=== PATIENT | female | born 1975 | race Caucasian/White ===

== ENCOUNTER 2021-01-28 10:27 | Outpatient (REF) | payer OTHER, SELFPAY ==
[2021-01-30 13:27] LABS: H Pylori Breath Test Negative (Negative)
== END 2021-01-28 10:28 | disposition home or self-care (01) ==
LOC: HO.LNP 10:27
PROVIDERS: PCP Nurse Practitioner Family; Referring Provider Nurse Practitioner Family; Visit Provider Physician Assistant
DX: E66.01 Morbid (severe) obesity due to excess calories (principal); Z68.41 Body mass index [BMI] 40.0-44.9, adult; Z71.3 Dietary counseling and surveillance; Z87.891 Personal history of nicotine dependence
CPT/HCPCS: 83013; 99202; 99211

== ENCOUNTER → 2021-02-15 08:08 | Outpatient (BNVA) | payer OTHER, SELFPAY | PROVIDERS: PCP Nurse Practitioner Family; Visit Provider Surgery ==

== ENCOUNTER 2021-02-28 08:56 | Outpatient (REF) | payer OTHER, SELFPAY ==
--- NOTE | ~2021-02-28 | XR_ITS ---
EXAMINATION: XR CHEST CLINICAL INFORMATION: Obesity COMPARISON: None TECHNIQUE: 2 views of the chest were obtained. FINDINGS: No significant abnormality is noted involving the heart, lungs, mediastinum, bony thorax or soft tissues. XR/XR chest 2V IMPRESSION: Unremarkable examination.
--- NOTE | 2021-02-28 09:03 | ECG_ITS ---
Test Reason : E66.01 Blood Pressure : / mmHG Vent. Rate : 071 BPM Atrial Rate : 071 BPM P-R Int : 164 ms QRS Dur : 068 ms QT Int : 374 ms P-R-T Axes : 019 020 014 degrees QTc Int : 406 ms Normal sinus rhythm Low voltage QRS Borderline ECG No previous ECGs available Referred By: Elvi Alfaro Electronically Signed By:YSABEL MULLINS MD
[2021-02-28 09:20] LABS: MANUAL DIFF FLAG NO
[2021-02-28 10:04] LABS: Basophils Percent Auto 0.5 % (0-2); Eosinophils Absolute Auto 0.2 X10*3/uL (0.0-0.4); Eosinophils Percent Auto 3.4 % (0-4); Hematocrit 38.1 % (37.0-47.0); Hemoglobin 12.6 g/dl (12.0-16.0); Imm Gran Abs Auto 0.01 X10*3/uL (0.00-0.03); Imm Gran Pct Auto 0.2 % (0.0-0.4); Lymphocytes Absolute Auto 1.2 X10*3/uL (1.2-4.9); Lymphocytes Percent Auto 21.6 % (20-40); Mean Corpuscular HGB Conc 33.1 g/dl (31.0-35.0); Mean Corpuscular Hemoglobin 30.4 pg (27.0-33.0); Mean Corpuscular Volume 91.8 fL (80.0-98.0); Mean Platelet Volume 11.1 fL (9.4-12.3); Monocytes Absolute Auto 0.4 X10*3/uL (0.1-1.2); Neutrophils Absolute Auto 3.7 x10*3/uL (2.0-8.3); Neutrophils Percent Auto 67.3 % (45-73); Platelet Count 205 X10*3/uL (160-400); Red Blood Count 4.15 X10*6/uL (4.20-5.50); Red Cell Distribution Width 12.2 % (11.0-16.0); White Blood Count 5.6 X10*3/uL (4.8-10.8)
[2021-02-28 10:39] LABS: Estimated Average Glucose 88 mg/dL; Hemoglobin A1c % 4.7 %
[2021-02-28 10:43] LABS: Alanine Aminotransferase 13 U/L (0-31); Alkaline Phosphatase 45 U/L (39-117); Anion Gap 9 (12-20); Aspartate Amino Transferase 13 U/L (5-31); Bilirubin Total 0.4 mg/dL (0.0-1.0); Blood Urea Nitrogen 20 mg/dL (9-16); C Reactive Protein 0.41 mg/dL (< or = 0.50); Calcium 9.3 mg/dL (8.4-10.2); Carbon Dioxide 28 mmol/L (22-29); Chloride 109 mmol/L (96-108); Cholesterol 213 mg/dL; Estimated Glomerular Filt Rate > 60; Glucose Random 86 mg/dL (60-115); HDL Cholesterol 63 mg/dL; Iron 54 mcg/dL (30-160); LDL Cholesterol Calculated 138 mg/dl; Percent Iron Saturation 19 % (15-50); Potassium 4.3 mmol/L (3.3-5.1); Sodium 142 mmol/L (135-145); Total Iron Binding Capacity 287 mcg/dL (228-428); Total Protein 6.7 g/dL (6.5-8.0); Triglycerides 64 mg/dL; Unsaturated Iron Binding 233 ug/dL
[2021-02-28 10:55] LABS: Ferritin 186 ng/mL (10-250); Insulin 8 uU/mL (2-29); TSH reflex Free T4 1.59 uIU/mL (0.32-4.0); Vitamin D 25-OH Total 19.3 ng/mL (>30)
[2021-02-28 11:06] LABS: Vitamin B12 395 pg/mL (200-900)
[2021-03-01 12:01] LABS: PTHI 60 pg/mL (14-64)
[2021-03-03 06:27] LABS: Zinc 74 mcg/dL (60-130)
[2021-03-03 20:55] LABS: Vitamin A 66 mcg/dL (38-98)
[2021-03-05 09:16] LABS: Vitamin B1 11 nmol/L (8-30)
== END 2021-02-28 08:57 | disposition home or self-care (01) ==
LOC: HO.LAB 08:56
PROVIDERS: Physician Assistant; PCP Surgery; Visit Provider Surgery
DX: E66.01 Morbid (severe) obesity due to excess calories (principal)
CPT/HCPCS: 36415; 71046; 80053; 80061; 82306; 82607; 82728; 82746; 83036; 83525; 83540; 83970; 84425; 84443; 84590; 84630; 85025; 86140; 93005

== ENCOUNTER → 2021-03-01 08:03 | Outpatient (BNVA) | payer OTHER, SELFPAY | PROVIDERS: PCP Nurse Practitioner Family; Visit Provider Dietitian, Registered | DX: E66.01 Morbid (severe) obesity due to excess calories (principal) | CPT/HCPCS: 97802 ==

== ENCOUNTER 2021-03-16 09:16 | Outpatient (REF) | payer OTHER, SELFPAY ==
--- NOTE | ~2021-03-16 | FL_ITS ---
EXAMINATION: XR FLUOROSCOPY UPPER GI WITH AIR CLINICAL INFORMATION: Obesity. COMPARISON: None TECHNIQUE: Upper GI was performed using thin and thick barium and effervescent granules. FINDINGS: Esophageal motility is normal. There is significant gastroesophageal reflux. No hernia is seen. The stomach and duodenum are normal-appearing. No fold thickening, mass, ulcer, or stricture is seen. FLUOROSCOPY TIME: 0.6 minutes. DOSE AREA PRODUCT: 5 Gy-cm2. 17 saved fluoroscopic images. FL/FL upper GI w air IMPRESSION: Significant gastroesophageal reflux. Otherwise unremarkable exam.
--- NOTE | ~2021-03-16 | US_ITS ---
EXAMINATION: US COMPLETE ABDOMEN WITH LIVER ELASTOGRAPHY CLINICAL INFORMATION: Obesity. COMPARISON: None. TECHNIQUE: Real-time imaging of the abdominal viscera. Noninvasive ultrasound liver fibrosis assessment is performed using Kendall ElastPQ point quantification shear wave elastography (2D-SWE) with a C5-2 MHz transducer. Multiple elastography samples are obtained. FINDINGS: PANCREAS: The visualized pancreatic head and body are normal in appearance. The remainder of the pancreas is obscured from visualization by the overlying bowel gas. ABDOMINAL AORTA: The proximal, middle, and distal aortic segments are normal in caliber. INFERIOR VENA CAVA: Visualized portions are normal. LIVER: The liver demonstrates normal size, contour and echogenicity. There is a small echogenic lesion right hepatic lobe, likely hemangioma measuring 0.7 x 0.7 x 0.7 cm. No additional lesions seen. There is no intrahepatic ductal dilatation. The right lobe measures 15.4 cm in length. The left lobe measures 9.6 cm in length. Portal flow is hepatopetal. Shear wave liver elastography median stiffness is 1.55 m/s (reference: normal median stiffness is 1.3 m/s or less). IQR/median stiffness to assess sampling precision is 0.15 (reference: good quality data set is IQR/median stiffness of 0.15 or less). GALLBLADDER: There is a small nonmobile echogenic polyp measuring 0.3 x 0.3 x 0.3 cm. The gallbladder is physiologically distended without evidence of stones, sludge, polyps, wall thickening or pericholecystic fluid. COMMON BILE DUCT: Normal in caliber measuring 0.4 cm in diameter. RIGHT KIDNEY: Normal. No hydronephrosis. No renal calculi or focal parenchymal lesions. The kidney measures 10.3 cm in maximum dimension. LEFT KIDNEY: Normal. No hydronephrosis. No renal calculi or focal parenchymal lesions. The kidney measures 9.6 cm in maximum dimension. SPLEEN: Normal. The spleen measures 14.0 cm in maximum dimension. FREE FLUID: None. US/US abdomen comp w elastography IMPRESSION: 1. Right hepatic lobe hemangioma. 2. Small gallbladder polyp but no echogenic stones or wall thickening. 3. Liver elastography: Median liver stiffness measured 1.55 m/s suggestive of cACLD ruled out. REFERENCE: Society of Radiologists in Ultrasound Liver Stiffness Thresholds (2020): LIVER STIFFNESS THRESHOLDS: *Liver Stiffness equal or less than 1.3 m/s: High probability of being normal. *Liver Stiffness less than 1.7 m/s: In the absence of other known clinical signs, rules out compensated advanced chronic liver disease. *Liver Stiffness 1.7-2.1 m/s: Suggestive of compensated advanced chronic liver disease but need further test for confirmation. *Liver Stiffness over 2.1 m/s: Rules in compensated advanced chronic liver disease. *Liver Stiffness over 2.4 m/s: Suggestive of clinically significant portal hypertension. QUALITY OF DATA SET: *IQR/Median value equal or less than 0.15 implies a quality data set. *IQR/Median value over 0.15 implies a poor quality data set. SIGNIFICANT CHANGE FROM PRIOR EXAM: Significant change if liver stiffness measurement is 10% or greater from prior exam. OTHER CONSIDERATIONS: The stage of liver fibrosis may be overestimated in the setting of acute hepatitis, liver inflammation, elevated liver function tests, hepatic vascular congestion, obstructive cholestasis, non-fasting state, and infiltrative diseases such as amyloidosis and lymphoma. In some patients with NAFLD, the liver stiffness thresholds for compensated advanced chronic liver disease may be lower. In causes other than viral hepatitis and NAFLD, liver stiffness thresholds are not well established.
== END 2021-03-16 09:17 | disposition home or self-care (01) ==
LOC: HO.US 09:16
PROVIDERS: Visit Provider Surgery
DX: E66.01 Morbid (severe) obesity due to excess calories (principal); K21.9 Gastro-esophageal reflux disease without esophagitis
CPT/HCPCS: 74246; 76705; 76981

== ENCOUNTER → 2021-03-17 08:07 | Outpatient (BNVA) | payer OTHER, SELFPAY | PROVIDERS: PCP Nurse Practitioner Family; Referring Provider Physician Assistant; Visit Provider Dietitian, Registered | DX: E66.01 Morbid (severe) obesity due to excess calories (principal) | CPT/HCPCS: 97803 ==

== ENCOUNTER → 2021-03-21 07:59 | Outpatient (BNVA) | payer OTHER, SELFPAY | PROVIDERS: PCP Nurse Practitioner Family; Visit Provider Surgery ==

== ENCOUNTER → 2021-04-07 10:45 | Outpatient (BNVA) | payer OTHER, SELFPAY | PROVIDERS: PCP Nurse Practitioner Family; Visit Provider Counselor Mental Health | DX: F34.1 Dysthymic disorder (principal) | CPT/HCPCS: 90791 ==

== ENCOUNTER → 2021-04-15 08:36 | Outpatient (BNVA) | payer OTHER, SELFPAY | PROVIDERS: PCP Nurse Practitioner Family; Visit Provider Surgery ==

== ENCOUNTER → 2021-05-16 08:15 | Outpatient (BNVA) | payer OTHER, SELFPAY | PROVIDERS: PCP Nurse Practitioner Family; Visit Provider Surgery | DX: Z13.89 Encounter for screening for other disorder (principal) ==

== ENCOUNTER → 2021-06-03 12:48 | Outpatient (BNVA) | payer OTHER, SELFPAY | PROVIDERS: PCP Nurse Practitioner Family; Referring Provider Nurse Practitioner Family; Visit Provider Surgery | DX: Z13.89 Encounter for screening for other disorder (principal) ==

== ENCOUNTER → 2021-06-06 07:54 | Outpatient (BNVA) | payer OTHER, SELFPAY | PROVIDERS: PCP Nurse Practitioner Family; Visit Provider Surgery | DX: E66.01 Morbid (severe) obesity due to excess calories (principal); K21.9 Gastro-esophageal reflux disease without esophagitis; R11.0 Nausea; Z01.818 Encounter for other preprocedural examination ==

== ENCOUNTER 2021-06-21 06:07 | Inpatient (IN) | payer OTHER, SELFPAY ==
[2021-06-07 10:35] VITALS: BMI 37.0
[2021-06-09 09:25] LABS: MANUAL DIFF FLAG NO
[2021-06-09 10:17] LABS: Basophils Percent Auto 0.6 % (0-2); Eosinophils Absolute Auto 0.1 X10*3/uL (0.0-0.4); Eosinophils Percent Auto 1.3 % (0-4); Hemoglobin 13.2 g/dl (12.0-16.0); Imm Gran Abs Auto 0.02 X10*3/uL (0.00-0.03); Imm Gran Pct Auto 0.4 % (0.0-0.4); Lymphocytes Percent Auto 21.1 % (20-40); Mean Corpuscular Hemoglobin 30.3 pg (27.0-33.0); Mean Corpuscular Volume 91.7 fL (80.0-98.0); Mean Platelet Volume 12.6 fL (9.4-12.3); Monocytes Absolute Auto 0.3 X10*3/uL (0.1-1.2); Monocytes Percent Auto 6.7 % (2-11); Neutrophils Absolute Auto 3.3 x10*3/uL (2.0-8.3); Neutrophils Percent Auto 69.9 % (45-73); Platelet Count 181 X10*3/uL (160-400); Red Blood Count 4.36 X10*6/uL (4.20-5.50); Red Cell Distribution Width 12.4 % (11.0-16.0); White Blood Count 4.7 X10*3/uL (4.8-10.8)
[2021-06-09 10:22] LABS: Prothrombin Time 11.6 SEC (9.9-13.0)
[2021-06-09 10:25] LABS: Partial Thromboplastin Time 32.2 SEC (24.1-38.0)
[2021-06-09 10:28] LABS: Estimated Average Glucose 85 mg/dL; Hemoglobin A1c % 4.6 %
[2021-06-09 10:49] LABS: Alanine Aminotransferase 104 U/L (0-31); Albumin Level 4.1 g/dL (3.5-5.0); Alkaline Phosphatase 42 U/L (39-117); Anion Gap 12 (12-20); Aspartate Amino Transferase 58 U/L (5-31); Bilirubin Total 0.6 mg/dL (0.0-1.0); Blood Urea Nitrogen 21 mg/dL (9-16); C Reactive Protein 0.38 mg/dL (< or = 0.50); Calcium 9.7 mg/dL (8.4-10.2); Carbon Dioxide 24 mmol/L (22-29); Chloride 109 mmol/L (96-108); Cholesterol 162 mg/dL; Creatinine Clr Calc Pharmacy 73.5; Estimated Glomerular Filt Rate > 60; Glucose Random 100 mg/dL (60-115); HDL Cholesterol 51 mg/dL; LDL Cholesterol Calculated 103 mg/dl; Potassium 4.9 mmol/L (3.3-5.1); Sodium 140 mmol/L (135-145); Total Protein 6.6 g/dL (6.5-8.0); Triglycerides 43 mg/dL
[2021-06-09 11:18] LABS: Insulin 8 uU/mL (2-29); TSH reflex Free T4 0.81 uIU/mL (0.32-4.0)
--- NOTE | 2021-06-17 23:42 | MHC.SHP ---
Pre-Procedural Eval Section A Date of Service: 06/17/21 The patient is an INPATIENT: Yes The History & Physical has been completed within 30 days and I have reviewed it.: Yes Section B Chief Complaint: obesity Relevant Family History (Specify if Yes): No Relevant Social History: None Present Medications: None Medical History: No relevant PMH History of Previous Operations: No relevant previous surgery Allergies: Allergies Allergy/AdvReac Type Severity Reaction Status Date / Time erythromycin base Allergy Severe Hives, rash Verified 06/07/21 10:11 Penicillins Allergy Severe Hives, rash Verified 06/07/21 10:14 Sulfa (Sulfonamide Allergy Severe Hives, rash Verified 06/07/21 10:14 Antibiotics) Review of Systems Sugical H&P ROS: Negative: Constitution, Cardiovascular, Respiratory, Neurological, Psychiatric, Hem-Onc, Allergic/Immunologic, Gastrointestinal, Genitourinary, Musculoskeletal, Integumentary, Endocrine and Eyes/Ears/Nose/Throat Exam Surgical H&P Exam: Normal: HEENT, Normal: Heart, Normal: Lungs, Normal: Extremities, Normal: Abdomen, Normal: Skin and Normal: Neurological Plan Diagnosis/Plan: Unchanged I have reviewed the history and physical and performed a pertinent physical examination on my patient. No changes have occurred unless specified.
[2021-06-20 13:25] LABS: COVID-19 Test Negative (Negative); IDNOW Serial# 55D5AD1C
[2021-06-21] VITALS (16 sets, daily range): BP systolic 110–141; BP diastolic 53–80; PULSE 65–94; RESP 16–18; TEMP 36.4–37.3; O2SAT 93–100
[2021-06-21 06:23] LABS: UPreg QC Valid YES; Urine Pregnancy NEGATIVE (NEGATIVE)
--- NOTE | 2021-06-21 07:04 | P.CONAN_ITS ---
HPI - Anesthesia Eval Consult details Narrative: 45 F for Gastric sleeve PMFSH Active Problems Active Problems: All Active Problems (Updated 06/05/21 @ 15:35 by Main Soto MD) BMI 39.0-39.9,adult (Acute) Obesity (Acute) Dysthymic disorder (Acute) Vitamin B12 deficiency (Acute) Vitamin D deficiency (Acute) Morbid obesity (Acute) Past Medical History Medical History (Updated 06/21/21 @ 10:50 by Main Soto MD) GERD (gastroesophageal reflux disease) Liver fibrosis Functional capacity: independent ambulation Family History Family History (Updated 01/28/21 @ 10:45 by Cyrus Davidson [facility]) Mother Hypertension Father Cancer of pancreas Hypertension Sister No problems noted. Sister No problems noted. Son No problems noted. Daughter No problems noted. 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 If so, by whom?: No Are you DNR?: No Advance Directives: No (will bring copy DOS) Advance Directives on File: No Recently lost weight without trying: No Patient : No FDLMP: 05/20/2021 : No Poor oral hygiene: No Meds Allergies Allergy/AdvReac Type Severity Reaction Status Date / Time erythromycin base Allergy Severe Hives, rash Verified 06/07/21 10:11 Penicillins Allergy Severe Hives, rash Verified 06/07/21 10:14 Sulfa (Sulfonamide Allergy Severe Hives, rash Verified 06/07/21 10:14 Antibiotics) Active Medications: Current Medications Lactated Ringer's (Lr) 1,000 mls @ 999 mls/hr IV .Q1H1M MATT Stop: 06/21/21 08:15 Acetaminophen (Ofirmev) 1,000 mg in 100 mls @ 400 mls/hr IV PREOP ONE Stop: 06/21/21 07:44 Exam Exam Date and Time: June 21, 2021 0704 Height,Weight and Vital Signs: Height 5 ft 1 in Weight 88.904 kg Last Vital Signs Temp 98.4 F 06/21/21 06:36 Pulse 65 06/21/21 06:36 Resp 16 06/21/21 06:36 BP 116/68 06/21/21 06:36 Pulse Ox 97 06/21/21 06:36 Pertinent Lab Results Pertinent Lab Results: Laboratory Tests 06/09/21 06/09/21 06/09/21 09:18 09:24 09:24 WBC 4.7 L RBC 4.36 Hgb 13.2 Hct 40.0 MCV 91.7 MCH 30.3 MCHC 33.0 RDW 12.4 Plt Count 181 MPV 12.6 H Immature Gran % (Auto) 0.4 Neut % (Auto) 69.9 Lymph % (Auto) 21.1 [place] % (Auto) 6.7 Eos % (Auto) 1.3 Baso % (Auto) 0.6 Lymph # (Auto) 1.0 L [place] # (Auto) 0.3 Eos # (Auto) 0.1 Baso # (Auto) 0.0 Abs Immat Gran (auto) 0.02 Absolute Neuts (auto) 3.3 Absolute Nucleated RBC 0.000 Nucleated RBC % (auto) 0.0 PT 11.6 INR 1.0 APTT 32.2 Sodium Potassium Chloride Carbon Dioxide Anion Gap BUN Creatinine Estim Creat Clear Calc Estimated GFR Random Glucose Estimat Average Glucose Hemoglobin A1c % Insulin Level Calcium Total Bilirubin AST ALT Alkaline Phosphatase C-Reactive Protein Total Protein Albumin Triglycerides Cholesterol LDL Cholesterol, Calc HDL Cholesterol TSH Urine Test COVID-19 (JAMIE) COVID-19 Clin Com Blood Type O Positive Antibody Screen NEGATIVE 06/09/21 06/09/21 06/20/21 09:24 09:24 12:59 WBC RBC Hgb Hct MCV MCH MCHC RDW Plt Count MPV Immature Gran % (Auto) Neut % (Auto) Lymph % (Auto) [place] % (Auto) Eos % (Auto) Baso % (Auto) Lymph # (Auto) [place] # (Auto) Eos # (Auto) Baso # (Auto) Abs Immat Gran (auto) Absolute Neuts (auto) Absolute Nucleated RBC Nucleated RBC % (auto) PT INR APTT Sodium 140 Potassium 4.9 Chloride 109 H Carbon Dioxide 24 Anion Gap 12 BUN 21 H Creatinine 0.99 Estim Creat Clear Calc 73.5 Estimated GFR > 60 Random Glucose 100 Estimat Average Glucose 85 Hemoglobin A1c % 4.6 Insulin Level 8 Calcium 9.7 Total Bilirubin 0.6 AST 58 H ALT 104 H Alkaline Phosphatase 42 C-Reactive Protein 0.38 Total Protein 6.6 Albumin 4.1 Triglycerides 43 Cholesterol 162 D LDL Cholesterol, Calc 103 HDL Cholesterol 51 TSH 0.81 Urine Test COVID-19 (JAMIE) Negative COVID-[facility] See Note Blood Type Antibody Screen 06/21/21 06:13 WBC RBC Hgb Hct MCV MCH MCHC RDW Plt Count MPV Immature Gran % (Auto) Neut % (Auto) Lymph % (Auto) [place] % (Auto) Eos % (Auto) Baso % (Auto) Lymph # (Auto) [place] # (Auto) Eos # (Auto) Baso # (Auto) Abs Immat Gran (auto) Absolute Neuts (auto) Absolute Nucleated RBC Nucleated RBC % (auto) PT INR APTT Sodium Potassium Chloride Carbon Dioxide Anion Gap BUN Creatinine Estim Creat Clear Calc Estimated GFR Random Glucose Estimat Average Glucose Hemoglobin A1c % Insulin Level Calcium Total Bilirubin AST ALT Alkaline Phosphatase C-Reactive Protein Total Protein Albumin Triglycerides Cholesterol LDL Cholesterol, Calc HDL Cholesterol TSH Urine Test NEGATIVE COVID-19 (JAMIE) COVID-[facility] Com Blood Type Antibody Screen Airway Mallampati Class: II TM Dist: >3cm Neck ROM: Full Loose/Missing/Broken Teeth: Yes Heart: S1, S2 Lungs: b/l breath sounds Assessment and Plan Assessment Anesthesia Assessment: Anesthesia Plan Discussed and Chart Reviewed Final Anesthetic Review Family History of Problems with Anesthesia: No History of Problems with Anesthesia: No NPO: Yes ASA Class: III Final Preanesthetic Review: Meds/Allgs Chart Reviewed, Consent Obtained/Reviewed and Anes Risks/Benef Reviewed Patient Risk: Intermediate Procedure Risk: Intermediate Anesthetic Plan Anesthetic Plan: GA Disposition: Inp. Admit - Standard Bed
[2021-06-21] MEDS: Lactated Ringers 1,000 ML 999 ML IV (07:08)
--- NOTE | 2021-06-21 10:38 | P.DS_ITS ---
DS: Providers Provider Date of Service: 06/22/21 Date of admission: 06/21/21 06:07 Primary care physician: Unknown Physician DS: Summary Hospital Course Hospital Course: ADMITTING DIAGNOSIS: morbid obesity DISCHARGE DIAGNOSIS: same, s/p laparoscopic sleeve gastrectomy PAST SURGICAL HISTORY: appendectomy and section PROCEDURE: upper endoscopy, laparoscopic sleeve gastrectomy DISCHARGE SUMMARY: History of Present Illness: The patient is a 45 +year-old woman with a BMI of 43.4 kg/m2 and associated co- morbidities as described above. The patient had extensive work-up,lost 25 lbs preoperatively and was electively scheduled for laparoscopic, possible open sleeve gastrectomy and gastropexy. Risks and complications of the surgery were discussed with the patient in advance, particularly the possibility of , pulmonary embolism, anastomotic leak, bleeding, bowel injury, GERD, cardiac, renal or pulmonary complications. The patient understood all the risks and was in agreement with the surgical plan. Hospital Course: The patient underwent an uneventful laparoscopic sleeve gastrectomy with gastropexy on the day of admission. Postoperatively, the patient was transferred to the surgical floor. The patient received IV Acetaminophen and IV dilaudid for pain control. Patient was started on bariatric phase 1 diet POD #0. On postoperative day one, the patient was feeling well without nausea, vomiting, fevers, or tachycardia. The patient had some mild incisional pain and the abdomen was soft. On the morning of postoperative day one, the patient was continued on 1 ounce of water or ice every half hour. During the day, the patient did fairly well, having some incisional pain, but able to ambulate adequately and to tolerate liquids well. Since the patient is doing well, we decided that the patient was ready to be discharged. The patient was given instructions to follow-up with me next week and to call my office for any fever over 101, persistent abdominal pain, nausea, vomiting, GERD, symptoms of DVT such as calf tenderness, or leg swelling, or pulmonary embolism such as chest pain or shortness of breath. The patient was also instructed to drink 40-60 ounces of liquids per day using the 1-ounce cups. The patient had been given prescriptions for Tylenol for pain, Zofran prn for nausea, and pantoprazole and carafate previously. The patient was encouraged to ambulate and use the incentive spirometer. The patient was allowed to shower, but no baths, and encouraged to stay active at home. All of these instructions were given to the patient personally. All questions were answered and the patient understood all instructions, the instructions were also given to the patient in print. Time Spent with Patient Time attestation: Total time spent providing and/or coordinating discharge services: Discharge coordination time: Less than 30 minutes Quality: Safe Use of Opioids Does Pt have an Active Cancer Diagnosis on the Problem List?: No Quality: Stroke Does the patient have a stroke diagnosis?: No Physical Exam Vital Signs: Vital Signs: Last Vital Signs Temp 98.4 F 06/21/21 06:36 Pulse 65 06/21/21 06:36 Resp 16 06/21/21 06:36 BP 116/68 06/21/21 06:36 Pulse Ox 97 06/21/21 06:36 BMI result Body Mass Index 37.0 DS: Data Data Completed and Pending Pending studies at discharge: Pending at discharge 06/21/21 09:36 Surgical [PTH] Routine Labs on day of discharge: Laboratory Results - last 24 hr 06/20/21 06/21/21 12:59 06:13 Urine Test NEGATIVE COVID-19 (JAMIE) Negative COVID-19 Clin Com See Note Discharge Plan Discharge Anticipated Discharge Date/Time: 06/22/21 10:36 Patient Disposition: Home, Self-Care Discharge Diagnosis: s/p sleeve gastrectomy Referrals: Physician,Unknown J [Primary Care Provider] - 1 Week Discharge Medications: Continued pantoprazole 40 mg tablet,delayed release (DR/EC) 40 mg PO DAILY Qty: 30 2RF ondansetron HCl 4 mg tablet 4 mg PO Q12H Qty: 20 0RF Discontinued cholecalciferol (vitamin D3) 125 mcg (5,000 unit) capsule 125 mcg PO DAILY Qty: 30 2RF mecobalamin (vitamin B12) 1,000 mcg tablet,disintegrating 1,000 mcg sublingual DAILY Qty: 30 2RF Rx Instructions: place tablet under tongue and allow to dissolve for at least30 secs before swallowing Discharge Orders: Discharge Order (Routine); Ordered 06/22/21 Ordered By: Main Soto Diet: other Activity on Discharge: No heavy lifting Stand Alone Forms: Patient Portal Discharge page Care Plan Goals: weight loss Health Concerns: morbid obesity Plan of Treatment: No tub baths, sex or returning to work until discussed at first post op appointment. No exercise, alcohol, tobacco or illegal drug use. Continue to use incentive spirometer hourly while awake. Walk in home for 5- 10 minutes every 2 hours during the first week. Continue phase 1 diet today and start phase 2 diet tomorrow morning. Follow all instructions in the bariatric handbook and call with any questions. 1. Please call your doctor or come back to the emergency room should any new symptoms arise. 2. You will receive a courtesy call from [facility] 24-48 hours after discharge. 3. Activity: abstain from alcohol, practice limited stair climbing, no bending, no driving, no exercise, no illicit substances, no lifting, no sex, no tub bath, no work. 4. Diet: continue as discussed with Dr. Soto. 5. Dressing Change/Wound Care: Do not change or remove surgical dressings unless they are wet or soiled. 6. Call your doctor if: - Your temperature exceeds 101.5 F - You experience excessive pain or swelling - You have an unexpected reaction to medication - You have excessive bleeding - You experience continued vomiting/nausea - Your incision begins to separate - Your incision shows signs of infection such as increased redness, swelling, excessive pain, heat, or drainage (light blood or clear fluid is normal) 7. General instructions: No lifting greater than 5 lbs for the next 4 weeks[address] driving within 24 hours of taking narcotic pain medications. If you do not move your bowels in the next 2 days, please take milk of magnesia over the counter. Please follow the post op diet and do not advance your diet until you are seen in the office in about 2 weeks. Please walk around your home every hour or two to prevent blood clots from forming in your legs. You do not need to wake from sleeping to walk. Please sleep in a bed or couch to prevent kinking at the hips and knees. Please take your incentive spirometer (your lung gas leak inspector) home with you and use it for the next few days to prevent pneumonias. You may shower, no hot tubs, baths or swimming pools. Please call the office with any questions or concerns such as increasing abdominal pain, fever, chills, shortness of breath, chest pain, leg pain or swelling, or redness or drainage from your incisions. Do not hesitate to contact the office with any questions at . The patient's medical history has been reviewed and they are considered low risk for post op DVT and therefore DVT prophylaxis is not considered necessary. Travel after surgery was reviewed. The patient has not disclosed any travel plans during the first 30 days after surgery and they have been advised that within the first 30 days after surgery any bus, plane, train or car travel over 2 hours in duration is contraindicated due to the possibility of developing blood clots from immobility. Any travel, needs to include periods of ambulation of 10 minutes in duration every 2 hours. The patient was instructed to discuss any plans for travel during this period with their bariatric surgeon. Assessment: stable, post op sleeve gastrectomy Discharge Date/Time: 06/22/21 09:06
--- NOTE | 2021-06-21 10:45 | P.BOP_ITS ---
Brief Operative Note Date of Service: 06/21/21 Pre-op diagnosis: Severe obesity and comorbidities (see below) Post-op diagnosis: same Procedure: INITIAL PATIENT BMI ON PRESENTATION AT OUR OFFICE: 43.4 kg/m2 LAST BMI BEFORE SURGERY: 38.7 kg/m2 COMORBIDITIES: GERD, liver fibrosis ?The patient presented to the Weight Management Program with significant obesity that was negatively impacting the patient's comorbidities as listed above.? The program is a phased program with a special focus on preoperative medical weight management to promote substantial weight loss and prepare the patients for the second phase of the program: bariatric surgery. The patient participated in an intensive weekly lifestyle ?intervention and exercise program during which the patient ?has lost between the initial office visit and the last preoperative visit 25.8lbs, or 11.59% of initial actual body weight. It was deemed appropriate for the patient to now have bariatric surgery. In light of the current Covid-19 pandemic and the well documented strong association of obesity and increased risk of worse outcomes if infected with Covid-19 (REFERENCES: https://pubmed.ncbi.nlm.nih.gov/94069152/ ,? https://pubmed.ncbi.nlm.nih. gov/39777475/ ), any delay in undergoing bariatric surgery may lead to the patient's worsening health condition and increased?risk of more severe Covid-19 disease if infected. In addition a recent?study from [facility] published in [facility] on 02/21/2021 ([email or web address]/C:/[id number] [email or web address]) found that, among patients with obesity, substantial weight loss achieved with surgery was associated with improved outcomes of COVID-19 infection. The findings suggest that obesity can be a modifiable risk factor for the severity of COVID-19 infection. In addition, the patient met the BMI-criteria for bariatric surgery based on the BMI on initial presentation. The patient should not be penalized for achieving such weight loss because ?it is not sustainable long-term without surgical intervention and it was achieved in preparation for bariatric surgery ?under my direction and based on my published research (file:///C:/Use rs/[email or web address]/[email or web address](3).pdf and? https://www.soard.org/article/C5862-8175(40)87359-X/pdf ) ?that a 10% preoperative weight loss improves long-term weight loss after surgery and reduces perioperative complications.? Insurance carriers such as [employer] have endorsed my recommendations ?and have included in their policies criteria to include a 10% preoperative weight loss requirement. PROCEDURE: Esophago-gastroscopy, laparoscopic repair of incarcerated diaphragmatic hernia, laparoscopic lysis of adhesions, laparoscopic sleeve gastrectomy and laparoscopic gastropexy INDICATIONS: This is a 45 year-old female who was electively scheduled for laparoscopic, possibly open sleeve gastrectomy. The risks and complications of the procedure were discussed with the patient in advance, particularly the possibility of ; pulmonary embolism; staple line leak; bleeding; GERD; cardiac, pulmonary, or renal complications; as well as long-term problems such as insufficient weight loss, vitamin deficiency, strictures, or ulcers. The patient understood all the risks, and was in agreement to proceed with surgery. DESCRIPTION OF PROCEDURE: After informed consent was obtained from the patient, the patient was given preoperative antibiotics, and was transferred to the operating room. After successful induction of general anesthesia, pneumatic compression devices were placed on both lower extremities. An upper endoscopy was performed next. The oropharynx and esophagus appeared to be within normal limits. There was no diaphragmatic hernia present consistent with the findings of the preoperative upper GI. The stomach was entered. Then after all fluid and air were suctioned and the stomach was fully decompressed, the scope was withdrawn and secured in the mid esophagus. The patient was then prepped and draped in the usual sterile manner, and abdominal access was established at the right upper quadrant with the Skye technique. A 12 mm blunt port was inserted, and the abdomen was insufflated with CO2 to a pressure of 15 mmHg. Under direct visualization, additional ports were placed, specifically two 5 mm Versi-step ports to the left upper quadrant, and a 5 mm Versi-Step port to the right upper quadrant. 1% lidocaine plain was used to infiltrate all port sites as well as all fascia defects. Using the EndoClose suture passer device, I placed a #1 Polysorb tie across the falciform ligament in order to retract it up against the abdominal wall and prevent injury of the ligament with our instruments during the procedure. Following that, the patient was placed in a steep reverse Trendelenburg position. An additional 5 mm port was placed to the right flank for the Mediflex retractor that was used to retract the left lobe of the liver. The gastro-esophageal fat pad was opened with the ultrasonic device (Thunderbeat, Olympus) and the anterior esophagus and hiatus were exposed. The angle of His was opened with the ultrasonic device the fundus of the stomach from any diaphragmatic and splenic attachments. I then opened the gastrocolic ligament between the transverse colon and the greater curvature of the stomach with the ultrasonic device to enter the lesser sac and facilitate the ligation of the short gastric vessels. I started at a mid-point along the greater curvature and using the Thunderbeat, all short gastric vessels were divided all the way to the angle of His until the left sabino was completely dissected at its entirety. I then divided the gastro-colic ligament distally to a distance of about 3-4 cm proximal to the pylorus. The stomach was then divided transversely with one Endo CLAUDIA-45 purple and four CLAUDIA-60 articulating orange loads using the AEON stapler and loads. Every effort was made that the gastric sleeve had a tubular shape and an even caliber throughout. Once the sleeve resection was completed, the staple line of the gastric sleeve was reinforced with Hemoclips. The resected stomach was retrieved without difficulty from the Skye port. A gastropexy was then performed in order to prevent postoperative GERD and partial gastric volvulus. Several interrupted 2.0 Surgidac sutures were placed between the sleeve's staple line and the previously divided greater omentum and gastro-colic ligament using the Endo-Stitch device. ?An upper endoscopy was performed. There was no narrowing at the GE junction. The scope was easily advanced all the way to the pylorus which was clearly visualized. There was no narrowing anywhere and the sleeve's caliber was even throughout. The sleeve's staple line was inspected and there was no evidence of ischemia, bleeding or dehiscence. At that point the gastroscope was withdrawn from the patient?s mouth while we were decompressing the bowel and the stomach f rom any remaining air. I looked into the lesser sac to see how the sleeve was situating and it was situating well. There was no bleeding from the staple line, spleen, or short gastric vessels. The Mediflex retractor was removed, and the undersurface of the liver was inspected and there was no bleeding. The patient was placed in supine position. I closed the fascial defect of the 12 mm port site with a figure of eight #1 Polysorb suture. Then 100 cc 0.25 % Marcaine plain with 10 mg of Dexamethasone were used to infiltrate the fascial closure as well as all skin incisions. At this point, the abdomen was deflated, all ports were removed under direct vision, and no bleeding was noted from any of the port sites. The skin incisions were irrigated with saline and were closed with 4-0 absorbable monofilament sutures. Steri-Strips and OpSites were used to cover all incisions. The patient was extubated and was transferred in stable condition to the recovery room for further care. I was present and performed all rain parts of the procedure. Ms. Alfaro was the real estate executive assistant. There were no residents to assist with this case. Jorge Soto MD, PhD, FACS Surgeon: Main Soto MD Anesthesia: GETA, local and other (TAP & 4ml of Zynerelef) Was an Chief Creative Officer used for this Procedure?: Yes Chief Creative Officer: Elvi Alfaro Estimated blood loss (mL): 10 IV fluids (mL): 2,500 Urine output (mL): 0 (No Pfeiffer to record) Pathology: other (Stomach) Condition: stable Disposition: PACU
--- NOTE | 2021-06-21 10:49 | PM.PNGS ---
Subjective Subjective Date of Service: 06/22/21 Interval history: Patient has mild incisional pain, but was able to ambulate and use the incentive spirometer. She is tolerating phase 1 bariatric diet Physical Exam Vital Signs: Vital Signs: Last Vital Signs Temp 97.8 F 06/21/21 10:32 Pulse 81 06/21/21 10:42 Resp 18 06/21/21 10:42 BP 114/76 06/21/21 10:42 Pulse Ox 100 06/21/21 10:42 BMI result Body Mass Index 37.0 GI: Inspection: Yes normal to inspection, Yes incision (clean, dry and intact) and Yes obesity Extrem: Right lower extremity: normal to inspection (no calf tenderness) Left lower extremity: normal to inspection (no calf tenderness) Objective Data Active Medications Fentanyl (Fentanyl Citrate/Pf 100 Mcg/2 Ml Vial) 25 mcg IVPUSH Q5M PRN; Protocol PRN Reason: Pain, Moderate (Pain Scale 4-6 Hydromorphone HCl (Hydromorphone Hcl 0.5 Mg/0.5 Ml Syringe) 0.25 mg IVPUSH Q5M PRN; Protocol PRN Reason: Pain, Severe (Pain Scale 7-10) Lactated Ringer's (Lr) 1,000 mls @ 80 mls/hr IVCONT .[id number] MATT Promethazine HCl 6.25 mg/ (Sodium Chloride) 50.25 mls @ 201 mls/hr IV ONCE PRN PRN Reason: Nausea and Vomiting Labs CBC & Chem 7: 06/22/21 05:12 06/22/21 05:12 Labs: Laboratory Results - last 24 hr 06/20/21 06/21/21 12:59 06:13 Urine Test NEGATIVE COVID-19 (JAMIE) Negative COVID-19 Clin Com See Note Procedures Date of Service Date of Service: 06/22/21 Progress Note: A&P Assessment and plan (1) Obesity: Status: Acute Assessment and Plan: s/p laparoscopic sleeve gastrectomy and gastropexy Doing well Check am labs. If OK, will discharge home? (2) BMI 38.0-38.9,adult: Status: Acute (3) S/P laparoscopic sleeve gastrectomy: Status: Acute (4) GERD (gastroesophageal reflux disease): Status: Acute (5) Liver fibrosis: Status: Acute Time Spent With Patient Time: Total time spent is greater than 50% in coordination of care (as documented) at patient's floor/unit and/or counseling patient: Quality Stroke Does the patient have a stroke diagnosis?: No VTE Prior VTE?: No VTE Risk Level:: Surgical - moderate VTE Device Contraindication: N/A - Device Ordered VTE Drug Contraindication: Treatment Not Indicated
[2021-06-21] MEDS: Famotidine/PF 20 MG/2 ML VIAL IVPUSH ×2 (10:57→21:05)
[2021-06-21] MEDS: Metoclopramide HCl 10 MG/2 ML VIAL IVPUSH (11:01)
[2021-06-21] MEDS: HYDROmorphone HCl 0.5 MG/0.5 ML SYRINGE 0.25 MG IVPUSH ×3 (11:10→21:05)
[2021-06-21 11:17] LABS: Hematocrit 40.5 % (37.0-47.0); Hemoglobin 13.4 g/dl (12.0-16.0)
[2021-06-21] MEDS: Lactated Ringers 1,000 ML 100 ML IVCONT (11:22)
[2021-06-21 11:31] LABS: Anion Gap 16 (12-20); Blood Urea Nitrogen 14 mg/dL (9-16); Calcium 9.3 mg/dL (8.4-10.2); Carbon Dioxide 24 mmol/L (22-29); Chloride 103 mmol/L (96-108); Creatinine Clr Calc Pharmacy 86.6; Estimated Glomerular Filt Rate > 60; Glucose Random 113 mg/dL (60-115); Potassium 4.5 mmol/L (3.3-5.1); Sodium 138 mmol/L (135-145)
--- NOTE | 2021-06-21 13:12 | PHA.MEDREC ---
Pharmacy Consult ? Medication Reconciliation Pharmacy has completed the medication reconciliation. No remarkable issues. Etta Pearson, AleshiaD
[2021-06-21] MEDS: ondansetron HCL 4 MG/2 ML VIAL IVPUSH (15:26)
[2021-06-21] MEDS: 0.9 % Sodium Chloride Flush 3 ML SYRINGE IVFLUSH (15:29)
[2021-06-22] MEDS: ondansetron HCL 4 MG/2 ML VIAL IVPUSH ×2 (00:07→05:57)
[2021-06-22] MEDS: Lactated Ringers 1,000 ML 100 ML IVCONT (00:29)
[2021-06-22 02:00] VITALS: BP 128/69; PULSE 73; RESP 16; TEMP 36.3; O2SAT 95
[2021-06-22 05:35] LABS: MANUAL DIFF FLAG NO
[2021-06-22 05:40] LABS: Basophils Percent Auto 0.1 % (0-2); Hematocrit 34.7 % (37.0-47.0); Hemoglobin 11.8 g/dl (12.0-16.0); Imm Gran Abs Auto 0.03 X10*3/uL (0.00-0.03); Imm Gran Pct Auto 0.4 % (0.0-0.4); Lymphocytes Absolute Auto 0.8 X10*3/uL (1.2-4.9); Lymphocytes Percent Auto 9.1 % (20-40); Mean Corpuscular Hemoglobin 30.6 pg (27.0-33.0); Mean Corpuscular Volume 90.1 fL (80.0-98.0); Mean Platelet Volume 11.8 fL (9.4-12.3); Monocytes Absolute Auto 0.7 X10*3/uL (0.1-1.2); Monocytes Percent Auto 8.2 % (2-11); Neutrophils Absolute Auto 6.8 x10*3/uL (2.0-8.3); Neutrophils Percent Auto 82.2 % (45-73); Platelet Count 208 X10*3/uL (160-400); Red Blood Count 3.85 X10*6/uL (4.20-5.50); Red Cell Distribution Width 12.6 % (11.0-16.0); White Blood Count 8.3 X10*3/uL (4.8-10.8)
[2021-06-22 05:55] LABS: Anion Gap 14 (12-20); Blood Urea Nitrogen 13 mg/dL (9-16); Calcium 9.2 mg/dL (8.4-10.2); Carbon Dioxide 23 mmol/L (22-29); Chloride 103 mmol/L (96-108); Creatinine Clr Calc Pharmacy 83.6; Estimated Glomerular Filt Rate > 60; Glucose Random 86 mg/dL (60-115); Potassium 4.3 mmol/L (3.3-5.1); Sodium 136 mmol/L (135-145)
[2021-06-22] MEDS: Famotidine/PF 20 MG/2 ML VIAL IVPUSH (07:22)
[2021-06-22 07:40] VITALS: BP 142/76; PULSE 60; RESP 17; TEMP 37; O2SAT 96
--- NOTE | 2021-06-22 09:27 | MHC.CM.PN ---
EMR REVIEWED, PT ADMITTED S/P LAP SLEEVE GASTRECTOMY AND HERNIA REPAIR, CM MET WITH PT WHO IS A&OX4, PT REPORTS SHE LIVES W/ AND 11YO AND 14YO CHILDREN, PT DENIES USE OF DME AND NO HOME SERVICES, PT VERIFIES PCP LINDA GUZMAN, REPORTS GALEN WHITEJAMIAAlfredo [phone],AND HAS RECEIVED [employer] X[employer]. PT WOULD LIKE TO D/C SOON ARRIVES TO BRING PT HOME. D/C PLAN: HOME TODAY W/OUPT FOLLOW-UP W/SURGEON, FOR TRANSPORT
--- NOTE | 2021-06-23 06:51 | HO.POSTANES ---
Post Anesthesia Evaluation Post Anesthesia Evaluation Vital Signs: Patient seen morning of 06/21/21 at 645am, computer were having issues so posting note now, vital signs were stable Anesthesia: General Endotracheal-GETA Mental Status: Awake Pain Control: Satisfactory Nausea/Vomiting: None Hydration: Adequate Anesthesia-Related Issues: No Anes. Related Issues
== END 2021-06-22 09:06 | disposition home or self-care (01) | DRG 403 ==
LOC: HO.SSSA 10:38 → HO.S3 13:26
PROVIDERS: Anesthesiology; Physician Assistant; Physician Assistant Surgical; Admitting Provider Surgery; PCP Nurse Practitioner Family; Visit Provider Surgery
PROC: 0DB64Z3 Excision of Stomach, Percutaneous Endoscopic Approach, Vertical (ICD-10-PCS; CPT 43845; principal; 2021-06-21 07:30)
DX: E66.01 Morbid (severe) obesity due to excess calories (principal); K74.00 Hepatic fibrosis, unspecified; K21.9 Gastro-esophageal reflux disease without esophagitis; Z68.38 Body mass index [BMI] 38.0-38.9, adult; Z20.822 Contact with and (suspected) exposure to COVID-19; Z88.0 Allergy status to penicillin; Z88.2 Allergy status to sulfonamides; Z79.899 Other long term (current) drug therapy
CPT/HCPCS: 36415; 80048; 80053; 80061; 81025; 83036; 83525; 84443; 85014; 85018; 85025; 85610; 85730; 86140; 86850; 86900; 86901; 87635; 88307; 88342; 99024; A4649; C9399; J0131; J1100; J1170; J1956; J2250; J2405; J2550; J2765; J3010

== ENCOUNTER → 2021-06-28 13:22 | Outpatient (BNVA) | payer OTHER, SELFPAY | PROVIDERS: PCP Nurse Practitioner Family; Referring Provider Nurse Practitioner Family; Visit Provider Surgery | DX: E66.9 Obesity, unspecified (principal); Z68.36 Body mass index [BMI] 36.0-36.9, adult; Z98.84 Bariatric surgery status | CPT/HCPCS: 99212 ==

== ENCOUNTER → 2021-07-19 08:09 | Outpatient (BNVA) | payer OTHER, SELFPAY | PROVIDERS: PCP Nurse Practitioner Family; Visit Provider Dietitian, Registered | DX: E66.9 Obesity, unspecified (principal); Z68.33 Body mass index [BMI] 33.0-33.9, adult | CPT/HCPCS: 97803 ==

== ENCOUNTER → 2021-08-02 11:44 | Outpatient (BNVA) | payer OTHER, SELFPAY | PROVIDERS: PCP Nurse Practitioner Family; Referring Provider Surgery; Visit Provider Dietitian, Registered | DX: E66.9 Obesity, unspecified (principal); Z68.32 Body mass index [BMI] 32.0-32.9, adult; Z98.84 Bariatric surgery status; Z71.3 Dietary counseling and surveillance | CPT/HCPCS: 97803 ==

== ENCOUNTER → 2021-08-23 11:57 | Outpatient (BNVA) | payer OTHER, SELFPAY | PROVIDERS: PCP Nurse Practitioner Family; Referring Provider Surgery; Visit Provider Dietitian, Registered | DX: E66.9 Obesity, unspecified (principal); Z68.30 Body mass index [BMI] 30.0-30.9, adult | CPT/HCPCS: 97803 ==

== ENCOUNTER → 2021-09-21 11:20 | Outpatient (BNVA) | payer OTHER, SELFPAY | PROVIDERS: PCP Nurse Practitioner Family; Referring Provider Surgery; Visit Provider Dietitian, Registered | DX: E66.3 Overweight (principal); Z68.28 Body mass index [BMI] 28.0-28.9, adult | CPT/HCPCS: 97803 ==

== ENCOUNTER → 2021-10-21 11:49 | Outpatient (BNVA) | payer OTHER, SELFPAY | PROVIDERS: PCP Nurse Practitioner Family; Referring Provider Surgery; Visit Provider Dietitian, Registered | DX: E66.3 Overweight (principal); Z68.26 Body mass index [BMI] 26.0-26.9, adult; Z98.84 Bariatric surgery status; Z71.3 Dietary counseling and surveillance | CPT/HCPCS: 97803 ==

== ENCOUNTER → 2021-11-21 11:44 | Outpatient (BNVA) | payer OTHER, SELFPAY | PROVIDERS: PCP Nurse Practitioner Family; Referring Provider Surgery; Visit Provider Dietitian, Registered | DX: E66.9 Obesity, unspecified (principal); Z98.84 Bariatric surgery status; Z68.25 Body mass index [BMI] 25.0-25.9, adult | CPT/HCPCS: 97803 ==

== ENCOUNTER 2021-12-07 10:23 | Outpatient (REF) | payer OTHER, SELFPAY ==
[2021-12-07 10:37] LABS: MANUAL DIFF FLAG NO
[2021-12-07 10:55] LABS: Eosinophils Absolute Auto 0.1 X10*3/uL (0.0-0.4); Eosinophils Percent Auto 1.8 % (0-4); Hematocrit 40.1 % (37.0-47.0); Hemoglobin 13.3 g/dl (12.0-16.0); Imm Gran Abs Auto 0.01 X10*3/uL (0.00-0.03); Imm Gran Pct Auto 0.3 % (0.0-0.4); Lymphocytes Absolute Auto 1.2 X10*3/uL (1.2-4.9); Lymphocytes Percent Auto 29.5 % (20-40); Mean Corpuscular HGB Conc 33.2 g/dl (31.0-35.0); Mean Corpuscular Hemoglobin 30.9 pg (27.0-33.0); Mean Corpuscular Volume 93.3 fL (80.0-98.0); Mean Platelet Volume 11.2 fL (9.4-12.3); Monocytes Absolute Auto 0.2 X10*3/uL (0.1-1.2); Monocytes Percent Auto 5.8 % (2-11); Neutrophils Absolute Auto 2.5 x10*3/uL (2.0-8.3); Neutrophils Percent Auto 61.6 % (45-73); Platelet Count 214 X10*3/uL (160-400); Red Cell Distribution Width 12.9 % (11.0-16.0)
[2021-12-07 11:20] LABS: Estimated Average Glucose 88 mg/dL; Hemoglobin A1c % 4.7 %
[2021-12-07 12:05] LABS: Ferritin 234 ng/mL (10-250); Insulin 15 uU/mL (2-29); TSH reflex Free T4 0.62 uIU/mL (0.32-4.0)
[2021-12-07 12:06] LABS: Folate 14.7 ng/mL (> or = 4.0); Vitamin B12 1079 pg/mL (200-900)
[2021-12-07 12:12] LABS: Alanine Aminotransferase 45 U/L (0-31); Albumin Level 4.5 g/dL (3.5-5.0); Alkaline Phosphatase 53 U/L (39-117); Anion Gap 15 (12-20); Aspartate Amino Transferase 29 U/L (5-31); Bilirubin Total 0.6 mg/dL (0.0-1.0); Blood Urea Nitrogen 22 mg/dL (9-16); C Reactive Protein 0.07 mg/dL (< or = 0.50); Calcium 10.2 mg/dL (8.4-10.2); Carbon Dioxide 28 mmol/L (22-29); Chloride 104 mmol/L (96-108); Cholesterol 185 mg/dL; Estimated Glomerular Filt Rate > 60; HDL Cholesterol 55 mg/dL; Iron 59 mcg/dL (30-160); LDL Cholesterol Calculated 121 mg/dl; Percent Iron Saturation 24 % (15-50); Potassium 4.6 mmol/L (3.3-5.1); Sodium 142 mmol/L (135-145); Total Iron Binding Capacity 251 mcg/dL (228-428); Triglycerides 48 mg/dL; Unsaturated Iron Binding 192 ug/dL
[2021-12-07 15:29] LABS: Glucose Random 52 mg/dL (60-115)
[2021-12-08 13:21] LABS: Calcium (PTHI) 10.6 mg/dL (8.6-10.2); PTHI 27 pg/mL (16-77)
[2021-12-13 00:51] LABS: Zinc 109 mcg/dL (60-130)
[2021-12-13 16:51] LABS: Vitamin B1 31 nmol/L (8-30)
[2021-12-13 18:56] LABS: Vitamin A 48 mcg/dL (38-98)
== END 2021-12-07 10:24 | disposition home or self-care (01) ==
LOC: HO.LAB 10:23
PROVIDERS: PCP Nurse Practitioner Family; Visit Provider Physician Assistant Surgical
DX: Z98.84 Bariatric surgery status (principal)
CPT/HCPCS: 36415; 80053; 80061; 82306; 82607; 82728; 82746; 83036; 83525; 83540; 83970; 84425; 84443; 84590; 84630; 85025; 86140

== ENCOUNTER → 2021-12-16 10:31 | Outpatient (BNVA) | payer OTHER, SELFPAY | PROVIDERS: PCP Nurse Practitioner Family; Referring Provider Dietitian, Registered; Visit Provider Physician Assistant Surgical | DX: L98.7 Excessive and redundant skin and subcutaneous tissue (principal); Z98.84 Bariatric surgery status | CPT/HCPCS: 99212 ==

== ENCOUNTER → 2022-01-24 08:45 | Outpatient (BNVA) | payer OTHER, SELFPAY | PROVIDERS: PCP Nurse Practitioner Family; Visit Provider Dietitian, Registered | DX: E66.9 Obesity, unspecified (principal); Z98.84 Bariatric surgery status; Z68.24 Body mass index [BMI] 24.0-24.9, adult | CPT/HCPCS: 97803 ==

== ENCOUNTER → 2022-02-23 08:48 | Outpatient (BNVA) | payer OTHER, SELFPAY | PROVIDERS: PCP Nurse Practitioner Family; Visit Provider Dietitian, Registered | DX: Z90.3 Acquired absence of stomach [part of] (principal) | CPT/HCPCS: 97803 ==

== ENCOUNTER → 2022-04-05 08:38 | Outpatient (BNVA) | payer OTHER, SELFPAY | PROVIDERS: PCP Nurse Practitioner Family; Visit Provider Dietitian, Registered | DX: E66.9 Obesity, unspecified (principal); Z68.26 Body mass index [BMI] 26.0-26.9, adult; Z98.84 Bariatric surgery status | CPT/HCPCS: 97803 ==

== ENCOUNTER → 2022-05-09 14:11 | Outpatient (BNVA) | payer OTHER, SELFPAY | PROVIDERS: PCP Nurse Practitioner Family; Visit Provider Dietitian, Registered | DX: E66.9 Obesity, unspecified (principal); Z98.84 Bariatric surgery status; Z90.3 Acquired absence of stomach [part of]; Z71.3 Dietary counseling and surveillance | CPT/HCPCS: 97803 ==

== ENCOUNTER → 2022-05-30 10:30 | Outpatient (BNVA) | payer OTHER, SELFPAY | PROVIDERS: PCP Nurse Practitioner Family; Visit Provider Counselor Mental Health ==

== ENCOUNTER 2022-06-08 07:37 | Outpatient (REF) | payer OTHER, SELFPAY ==
[2022-06-08 07:53] LABS: Mean Corpuscular Hemoglobin 30.7 pg (27.0-33.0); PLT CLUMP 1; SCAN SMEAR FLAG 1
[2022-06-08 07:55] LABS: Basophils Percent Auto 0.6 % (0-2); Eosinophils Absolute Auto 0.1 X10*3/uL (0.0-0.4); Eosinophils Percent Auto 2.7 % (0-4); Hematocrit 40.1 % (37.0-47.0); Hemoglobin 13.3 g/dl (12.0-16.0); Imm Gran Abs Auto 0.01 X10*3/uL (0.00-0.03); Imm Gran Pct Auto 0.3 % (0.0-0.4); Lymphocytes Absolute Auto 0.8 X10*3/uL (1.2-4.9); Lymphocytes Percent Auto 23.7 % (20-40); MANUAL DIFF FLAG SCAN; Mean Corpuscular HGB Conc 33.2 g/dl (31.0-35.0); Mean Corpuscular Volume 92.6 fL (80.0-98.0); Mean Platelet Volume 11.3 fL (9.4-12.3); Monocytes Absolute Auto 0.4 X10*3/uL (0.1-1.2); Monocytes Percent Auto 12.3 % (2-11); Neutrophils Percent Auto 60.4 % (45-73); Red Blood Count 4.33 X10*6/uL (4.20-5.50)
[2022-06-08 08:14] LABS: Estimated Average Glucose 91 mg/dL; Hemoglobin A1c % 4.8 %
[2022-06-08 08:24] LABS: Alanine Aminotransferase 34 U/L (0-31); Albumin Level 3.9 g/dL (3.5-5.0); Alkaline Phosphatase 49 U/L (39-117); Anion Gap 11 (12-20); Aspartate Amino Transferase 33 U/L (5-31); Bilirubin Total 0.8 mg/dL (0.0-1.0); Blood Urea Nitrogen 24 mg/dL (9-16); C Reactive Protein 0.48 mg/dL (< or = 0.50); Calcium 9.2 mg/dL (8.4-10.2); Carbon Dioxide 28 mmol/L (22-29); Chloride 105 mmol/L (96-108); Cholesterol 189 mg/dL; Estimated Glomerular Filt Rate > 60; Glucose Random 84 mg/dL (60-115); HDL Cholesterol 59 mg/dL; Iron 81 mcg/dL (30-160); LDL Cholesterol Calculated 116 mg/dl; Percent Iron Saturation 35 % (15-50); Potassium 4.3 mmol/L (3.3-5.1); Sodium 140 mmol/L (135-145); Total Iron Binding Capacity 231 mcg/dL (228-428); Total Protein 6.2 g/dL (6.5-8.0); Triglycerides 73 mg/dL; Unsaturated Iron Binding 150 ug/dL
[2022-06-08 08:34] LABS: Platelet Count 169 X10*3/uL (160-400); SLIDE REVIEW VERIFIED; White Blood Count 3.3 X10*3/uL (4.8-10.8)
[2022-06-08 08:51] LABS: Ferritin 221 ng/mL (10-250); Insulin 3 uU/mL (2-29); TSH reflex Free T4 0.91 uIU/mL (0.32-4.0); Vitamin B12 1115 pg/mL (200-900); Vitamin D 25-OH Total 45.3 ng/mL (>30)
[2022-06-12 11:03] LABS: Calcium (PTHI) 9.4 mg/dL (8.6-10.2); PTHI 45 pg/mL (16-77)
[2022-06-14 01:18] LABS: Zinc 76 mcg/dL (60-130)
[2022-06-15 15:08] LABS: Vitamin A 49 mcg/dL (38-98)
[2022-06-19 13:59] LABS: Vitamin B1 24 nmol/L (8-30)
== END 2022-06-08 07:38 | disposition home or self-care (01) ==
LOC: HO.LAB 07:37
PROVIDERS: Visit Provider Physician Assistant Surgical
DX: Z98.84 Bariatric surgery status (principal)
CPT/HCPCS: 36415; 80053; 80061; 82306; 82607; 82728; 82746; 83036; 83525; 83540; 83970; 84425; 84443; 84590; 84630; 85025; 86140

== ENCOUNTER → 2022-07-11 11:19 | Outpatient (BNVA) | payer OTHER, SELFPAY | PROVIDERS: PCP Nurse Practitioner Family; Referring Provider Nurse Practitioner Family; Visit Provider Physician Assistant Surgical | DX: E66.3 Overweight (principal); L98.7 Excessive and redundant skin and subcutaneous tissue; Z98.84 Bariatric surgery status; Z68.28 Body mass index [BMI] 28.0-28.9, adult | CPT/HCPCS: 99212 ==

== ENCOUNTER → 2022-08-16 08:46 | Outpatient (BNVA) | payer OTHER, SELFPAY | PROVIDERS: PCP Nurse Practitioner Family; Visit Provider Dietitian, Registered | DX: Z98.84 Bariatric surgery status (principal); Z71.3 Dietary counseling and surveillance | CPT/HCPCS: 97803 ==

== ENCOUNTER 2022-10-26 08:33 | Outpatient (AMB) | payer OTHER, SELFPAY ==
--- NOTE | 2022-10-26 08:42 | MHC.AMNUTRGE ---
Intake VS Expanded 10/26/22 08:44 Height 5 ft Weight 153 lb BMI 29.9 Body Fat 43.8 Body Fat Percentage 28.6 Muscle Mass 104.0 Visceral Mass 6 Water Mass 78.0 BMR 1,468 Intake Visit Reasons: (OV) PO LSG 06/21/21 Allergies erythromycin base Allergy (Severe, Verified 07/11/22 11:26) Hives, rash Penicillins Allergy (Severe, Verified 07/11/22 11:26) Hives, rash Sulfa (Sulfonamide Antibiotics) Allergy (Severe, Verified 07/11/22 11:26) Hives, rash HPI Nutrition Presentation Details LSG with Dr. Soto 06/21/21 Preop weight (06/05) 198# 4 wks post op 172# weight at 4 MO 137# weight at 6MO PO 126-129# Last weight in July weight 145 Weigth today 153# Pts goal 125# Diet Assmnt Details Patient shares she has been very obsessive over food lately. She will constantly be thinking about how to consume less calories. Sometimes skips her mid day bar to save calories. Longer workouts having food for lunch - so 2 meals, 1 Premier premade shake days where her workouts are shorter, (more strength training) has 2 Premier premades and 1 meal Taking Unjury, tolerating OK Hydration: 40 oz Exercise: 3 days per week running 6 miles 30-45 minutes strength training plus 30 minutes cardio . I feel like it is not a real work out unless I do cardio Constipation: 2 fiber choice , Mag calm gummies and does help Diagnosis Nutrition problem #1 overweight/obesity As related to (etiology) #1 excess energy intake and physical inactivity As evidenced by (sign/symptom) #1 high BMI (resolved ) Monitoring/Goals Nutrition problem monitoring total energy intake, level of knowledge/skill, total CHO intake and weight Outcome progress progressing Learning/Education Readiness to learn excellent Stages of change action Educational materials provided Yes (fueling for athletes ) Most Recent Diabetes Results: Cholesterol 189 mg/dL 06/08/22 HDL Cholesterol 59 mg/dL 06/08/22 Triglycerides 73 mg/dL 06/08/22 Creatinine 0.85 mg/dL (0.5-1.4) 06/08/22 Blood Urea Nitrogen 24 mg/dL (9-16) H 06/08/22 Sodium 140 mmol/L (135-145) 06/08/22 Potassium 4.3 mmol/L (3.3-5.1) 06/08/22 Chloride 105 mmol/L (96-108) 06/08/22 Carbon Dioxide 28 mmol/L (22-29) 06/08/22 Calcium 9.2 mg/dL (8.4-10.2) 06/08/22 AST 33 U/L (5-31) H 06/08/22 ALT 34 U/L (0-31) H 06/08/22 Total Protein 6.2 g/dL (6.5-8.0) L 06/08/22 Albumin 3.9 g/dL (3.5-5.0) 06/08/22 [facility] Medical History (Updated 07/11/22 @ 12:06 by SALMA Sinclair) BMI 38.0-38.9,adult BMI 39.0-39.9,adult Dysthymic disorder GERD (gastroesophageal reflux disease) Liver fibrosis Obesity Vitamin B12 deficiency Vitamin D deficiency Surgical History Hx of appendectomy Hx of section Family History Mother Hypertension Father Cancer of pancreas Hypertension Sister No problems noted. Sister No problems noted. Son No problems noted. Daughter No problems noted. Social History (Updated 07/11/22 @ 11:27 by Lilia Lawton CMA) Household Members: Family Housing: House Are you a primary day care provider to a significant other at home: Yes (children ages 11 + 15, will have help after surgery) Do you presently have visiting nurse or other home services: No Alcohol intake: current Alcohol intake frequency: holidays/special occasions only Patient Tobacco Use Status: Former Tobacco user Quit Date: 2017 Tobacco use type: Cigarette service: No Current occupational status: employed Assessment & Plan Assessment & Plan (1) Overweight: Code(s): E66.3 - Overweight Patient Instructions: expressed my concerns that she is undereating, and concern for disordered eating. Educated having balanced meals (protein, vegetable, healthy carb, healthy fat) have protein shake immediately after workout. 4 meals per day 20-30g protein each with macronutrients balanced as noted. Recommend slowly increasing calorie intake over the next few appointments. We will monitor body composition, pt will have next f/u with me in office on 10 9am. she will addend emotional eating workshop mid oct. I also encouraged she consider meeting with Yasmin again , she will call if desired. Coding Level of Care Code Nutr Indiv Subseq (30962) Diagnoses Overweight E66.3 Time Spent (min) 45
[2022-10-26 08:44] VITALS: BMI 29.9
== END 2022-10-26 10:29 | disposition home or self-care (01) ==
PROVIDERS: PCP Nurse Practitioner Family; Visit Provider Dietitian, Registered
DX: E66.3 Overweight (principal)

== ENCOUNTER → 2022-10-26 08:33 | Outpatient (BNVA) | payer OTHER, SELFPAY | PROVIDERS: PCP Nurse Practitioner Family; Visit Provider Dietitian, Registered | DX: E66.3 Overweight (principal); Z68.29 Body mass index [BMI] 29.0-29.9, adult; Z98.84 Bariatric surgery status; Z71.3 Dietary counseling and surveillance | CPT/HCPCS: 97803 ==

== ENCOUNTER → 2022-11-29 08:58 | Outpatient (BNVA) | payer OTHER, SELFPAY | PROVIDERS: PCP Nurse Practitioner Family; Visit Provider Dietitian, Registered | DX: E66.9 Obesity, unspecified (principal); Z68.30 Body mass index [BMI] 30.0-30.9, adult; Z98.84 Bariatric surgery status; Z71.3 Dietary counseling and surveillance | CPT/HCPCS: 97803 ==

== ENCOUNTER 2023-02-01 08:52 | Outpatient (AMB) | payer OTHER, SELFPAY ==
--- NOTE | 2023-02-01 09:09 | A.OFFVIS_ITS ---
Intake VS Expanded 02/01/23 09:23 Height 5 ft Weight 152 lb BMI 29.7 Body Fat % 30.6 Body Fat Mass 46.8 Fat Free Mass 105.8 Visceral Fat Rating 6 Body Water % 49.4 Body Water Mass 75.4 Muscle Mass/Score 100.6 Basal Metabolic Rate/Score 1,426 Intake Visit Reasons: (OV) PO LSG 06/21/21 Allergies erythromycin base Allergy (Severe, Verified 07/11/22 11:26) Hives, rash Penicillins Allergy (Severe, Verified 07/11/22 11:26) Hives, rash Sulfa (Sulfonamide Antibiotics) Allergy (Severe, Verified 07/11/22 11:26) Hives, rash HPI Nutrition Presentation Details LSG with Dr. Soto 06/21/21 Preop weight (06/05) 198# 4 wks post op 172# weight at 4 MO 137# weight at 6MO PO 126-129# weight in July weight 145 Weigth today 152# Pts goal 125# Reason for consult elevated BMI Diet Assmnt Details Currently having 2 meals and 1 shake. skipping midafternoon snack, not hungry Taking Unjury, tolerating OK Hydration: 40 oz Exercise: 3 days per week running 6 miles 30-45 minutes strength training plus 30 minutes cardio . I feel like it is not a real work out unless I do cardio . We have discussed the benefits of strength training many times and she understands . today we came to a solution of doing cardio in the morning and weight training in the evening Constipation: 2 fiber choice , Mag calm gummies and does help. Alos added in colon broom which is psyllium husk as main ingredient. Recommended probiotic trial Diagnosis Nutrition problem #1 overweight/obesity As related to (etiology) #1 excess energy intake and physical inactivity As evidenced by (sign/symptom) #1 high BMI (resolved ) Monitoring/Goals Nutrition problem monitoring total energy intake, level of knowledge/skill, total CHO intake and weight Outcome progress progressing Learning/Education Readiness to learn excellent Stages of change action Educational materials provided Yes (fueling for athletes ) Most Recent Diabetes Results: Cholesterol 189 mg/dL 06/08/22 HDL Cholesterol 59 mg/dL 06/08/22 Triglycerides 73 mg/dL 06/08/22 Creatinine 0.85 mg/dL (0.5-1.4) 06/08/22 Blood Urea Nitrogen 24 mg/dL (9-16) H 06/08/22 Sodium 140 mmol/L (135-145) 06/08/22 Potassium 4.3 mmol/L (3.3-5.1) 06/08/22 Chloride 105 mmol/L (96-108) 06/08/22 Carbon Dioxide 28 mmol/L (22-29) 06/08/22 Calcium 9.2 mg/dL (8.4-10.2) 06/08/22 AST 33 U/L (5-31) H 06/08/22 ALT 34 U/L (0-31) H 06/08/22 Total Protein 6.2 g/dL (6.5-8.0) L 06/08/22 Albumin 3.9 g/dL (3.5-5.0) 06/08/22 [facility] Medical History (Updated 07/11/22 @ 12:06 by SALMA Sinclair) Liver fibrosis GERD (gastroesophageal reflux disease) BMI 38.0-38.9,adult BMI 39.0-39.9,adult Obesity Dysthymic disorder Vitamin B12 deficiency Vitamin D deficiency Surgical History Hx of appendectomy Hx of section Family History Mother Hypertension Father Cancer of pancreas Hypertension Sister No problems noted. Sister No problems noted. Son No problems noted. Daughter No problems noted. Social History (Updated 07/11/22 @ 11:27 by Lilia Lawton CMA) Household Members: Family Housing: House Are you a primary director of home care hospice to a significant other at home: Yes (children ages 11 + 15, will have help after surgery) Do you presently have visiting nurse or other home services: No Alcohol intake: current Alcohol intake frequency: holidays/special occasions only Patient Tobacco Use Status: Former Tobacco user Quit Date: 2017 Tobacco use type: Cigarette service: No Current occupational status: employed Assessment & Plan Assessment & Plan (1) Overweight: Code(s): E66.3 - Overweight Plan nutrition follow up apr 11 OV. Due for labs . Patient Instructions: Will continue cardio as she really enjoys it, add in strength training 3x per week in the evening. Encouraged having snack midafternoon to appropriately fuel. Coding Level of Care Code Nutr Indiv Subseq (80510) Diagnoses Overweight E66.3 Time Spent (min) 30
[2023-02-01 09:23] VITALS: BMI 29.7
== END 2023-02-01 09:35 | disposition home or self-care (01) ==
PROVIDERS: PCP Nurse Practitioner Family; Visit Provider Dietitian, Registered
DX: E66.3 Overweight (principal)

== ENCOUNTER → 2023-02-01 08:52 | Outpatient (BNVA) | payer OTHER, SELFPAY | PROVIDERS: PCP Nurse Practitioner Family; Visit Provider Dietitian, Registered | DX: E66.3 Overweight (principal); Z68.29 Body mass index [BMI] 29.0-29.9, adult | CPT/HCPCS: 97803 ==

== ENCOUNTER 2023-02-07 07:50 | Outpatient (REF) | payer OTHER, SELFPAY ==
[2023-02-07 08:16] LABS: MANUAL DIFF FLAG NO
[2023-02-07 09:11] LABS: Basophils Percent Auto 0.7 % (0-2); Eosinophils Absolute Auto 0.1 X10*3/uL (0.0-0.4); Eosinophils Percent Auto 2.4 % (0-4); Hematocrit 38.8 % (37.0-47.0); Imm Gran Abs Auto 0.02 X10*3/uL (0.00-0.03); Imm Gran Pct Auto 0.4 % (0.0-0.4); Lymphocytes Absolute Auto 1.3 X10*3/uL (1.2-4.9); Lymphocytes Percent Auto 27.3 % (20-40); Mean Corpuscular HGB Conc 33.5 g/dl (31.0-35.0); Mean Corpuscular Hemoglobin 31.3 pg (27.0-33.0); Mean Corpuscular Volume 93.3 fL (80.0-98.0); Mean Platelet Volume 11.1 fL (9.4-12.3); Monocytes Absolute Auto 0.3 X10*3/uL (0.1-1.2); Monocytes Percent Auto 7.2 % (2-11); Neutrophils Absolute Auto 2.9 x10*3/uL (2.0-8.3); Platelet Count 184 X10*3/uL (160-400); Red Blood Count 4.16 X10*6/uL (4.20-5.50); Red Cell Distribution Width 12.2 % (11.0-16.0); White Blood Count 4.6 X10*3/uL (4.8-10.8)
[2023-02-07 09:22] LABS: Estimated Average Glucose 88 mg/dL; Hemoglobin A1c % 4.7 % (<6.0)
[2023-02-07 09:51] LABS: Anion Gap 10 (12-20); Blood Urea Nitrogen 21 mg/dL (9-16); C Reactive Protein < 0.10 mg/dL (< or = 0.50); Calcium 9.5 mg/dL (8.4-10.2); Carbon Dioxide 27 mmol/L (22-29); Chloride 107 mmol/L (96-108); Cholesterol 173 mg/dL (<200); Estimated Glomerular Filt Rate > 60; Glucose Random 87 mg/dL (60-115); HDL Cholesterol 63 mg/dL (>40); Iron 148 mcg/dL (30-160); LDL Cholesterol Calculated 97 mg/dL (<100); Percent Iron Saturation 62 % (15-50); Potassium 4.3 mmol/L (3.3-5.1); Sodium 140 mmol/L (135-145); Total Iron Binding Capacity 240 mcg/dL (228-428); Triglycerides 65 mg/dL (<150); Unsaturated Iron Binding 92 ug/dL
[2023-02-07 10:14] LABS: Folate 13.2 ng/mL (> or = 4.0); Vitamin B12 1046 pg/mL (200-900)
[2023-02-07 10:18] LABS: Ferritin 216 ng/mL (10-250); Insulin 3 uU/mL (2-29); TSH reflex Free T4 1.04 uIU/mL (0.32-4.0); Vitamin D 25-OH Total 55.4 ng/mL (>30)
[2023-02-11 12:32] LABS: Zinc 79 mcg/dL (60-130)
[2023-02-11 20:13] LABS: Vitamin A 52 mcg/dL (38-98)
[2023-02-14 14:23] LABS: Vitamin B1 18 nmol/L (8-30)
== END 2023-02-07 07:51 | disposition home or self-care (01) ==
LOC: HO.LAB 07:50
PROVIDERS: Visit Provider Physician Assistant Surgical
DX: E66.3 Overweight (principal); Z98.84 Bariatric surgery status
CPT/HCPCS: 36415; 80048; 80061; 82306; 82607; 82728; 82746; 83036; 83525; 83540; 84425; 84443; 84590; 84630; 85025; 86140

== ENCOUNTER 2023-02-15 09:51 | Outpatient (AMB) | payer OTHER, SELFPAY ==
--- NOTE | 2023-02-15 09:57 | A.OFFVIS_ITS ---
Intake VS Expanded 02/15/23 10:02 BP 137/62 Blood Pressure Location Rt brachial Blood Pressure Position Sitting Pulse 73 Pulse Source Pulse Oximeter Temp 98.8 F Temperature Source Temporal Artery Scan Pulse Oximetry 73 L Oxygen Delivery Method Room Air Height 5 ft Weight 156 lb 6.4 oz BMI 30.5 Body Fat % 30.2 Body Fat Mass 47.2 Fat Free Mass 109.2 Visceral Fat Rating 6.0 Body Water % 49.8 Body Water Mass 77.8 Muscle Mass/Score 103.6 Basal Metabolic Rate/Score 1,467 Intake Visit Reasons: (OV)PO LSG 06/21/21 Allergies erythromycin base Allergy (Severe, Verified 02/15/23 10:00) Hives, rash Penicillins Allergy (Severe, Verified 02/15/23 10:00) Hives, rash Sulfa (Sulfonamide Antibiotics) Allergy (Severe, Verified 02/15/23 10:00) Hives, rash Medication List - Last Reconciled 02/15/23 by SALMA Sinclair clotrimazole 1% 1 appl topical BID HPI HPI Comments History of Present Illness Details This?is a?47?yo female who is s/p LSG 06/21/2021. Presents for 1 year 8 month post op visit. Weight at last visit on 02/01/2023 was 152 pounds with a BMI of 29.7, weight today is 156.4 pounds, representing a 4.6 pound weight gain with a BMI today of 30.5.? No complaints of nausea, emesis, abdominal pain or reflux, or constipation. Present meal plan includes: 2 shakes, 1 meal or 2 meals and 1 shake ([place]ier) had difficulty the last few weeks adhering to plan due to holiday events but plans to get back on track as well as cut out alcohol after this weekend Exercise routine includes: 3 days per week running 6 miles 30-45 minutes strength training plus 30 minutes cardio Pt continues to have problems with excess skin of abdomen. Very uncomfortable during exercise, experiences friction. Moisture collects in skin fold and sometimes causes redness for which she has now tried the clotrimazole ointment but this has not completely resolved the problem. Has to shower immediately after a workout to keep area clean and help prevent rashes from forming. Has to wear compressive pants to hold skin in place especially during exercise as skin moves around a lot. [facility] Medical History (Updated 02/15/23 @ 10:05 by SALMA Sinclair) Liver fibrosis GERD (gastroesophageal reflux disease) BMI 38.0-38.9,adult BMI 39.0-39.9,adult Obesity Dysthymic disorder Vitamin B12 deficiency Vitamin D deficiency Surgical History (Updated 02/15/23 @ 10:01 by Lilia Lawton CMA) S/P laparoscopic sleeve gastrectomy Hx of section Hx of appendectomy Family History Mother Hypertension Father Cancer of pancreas Hypertension Sister No problems noted. Sister No problems noted. Son No problems noted. Daughter No problems noted. Social History (Updated 02/15/23 @ 10:01 by Lilia Lawton [facility]) Household Members: Family Housing: House Are you a primary career and technology education teacher to a significant other at home: Yes (children ages 11 + 15, will have help after surgery) Do you presently have visiting nurse or other home services: No Alcohol intake: current Alcohol intake frequency: holidays/special occasions only Patient Tobacco Use Status: Former Tobacco user Quit Date: 2017 Tobacco use type: Cigarette service: No Current occupational status: employed Assessment & Plan Assessment & Plan (1) S/P laparoscopic sleeve gastrectomy: Code(s): Z98.84 - Bariatric surgery status (2) Obesity: Code(s): E66.9 - Obesity, unspecified Plan Discussed goal of at least 60-65g protein per day, likely needs more if she is exercising. If she has two meals and one shake, recommended adding in one additional protein snack per day as her meals are usually on the smaller side. Reviewed the benefits of strength training. Labs reviewed, no changes necessary to vitamin regimen. Continue clotrimazole ointment for rashes of excess skin. Discussed panniculectomy requirements; pt is unsure if she wants to pursue at this time. RTC in Mar for previously scheduled visit with MITZI. Patient is obese and is not considered stable at this time. I spent a total of 30 minutes reviewing/updating records, examining the patient and counseling the patient on weight management as detailed above. Coding Level of Care Code Est Pt Level 4 (72770) Diagnoses S/P laparoscopic sleeve gastrectomy Z98.84 Obesity E66.9
[2023-02-15 10:02] VITALS: BP 137/62; PULSE 73; TEMP 37.1; O2SAT 73; BMI 30.5
== END 2023-02-15 10:38 | disposition home or self-care (01) ==
PROVIDERS: PCP Nurse Practitioner Family; Referring Provider Nurse Practitioner Family; Visit Provider Physician Assistant Surgical
DX: E66.9 Obesity, unspecified (principal); Z68.30 Body mass index [BMI] 30.0-30.9, adult; Z98.84 Bariatric surgery status; Z90.3 Acquired absence of stomach [part of]
CPT/HCPCS: 99214

== ENCOUNTER → 2023-02-15 09:51 | Outpatient (BNVA) | payer OTHER, SELFPAY | PROVIDERS: PCP Nurse Practitioner Family; Visit Provider Physician Assistant Surgical | DX: E66.9 Obesity, unspecified (principal); Z68.30 Body mass index [BMI] 30.0-30.9, adult; Z98.84 Bariatric surgery status | CPT/HCPCS: 99212 ==

== ENCOUNTER 2023-04-11 09:03 | Outpatient (AMB) | payer OTHER, SELFPAY ==
--- NOTE | 2023-04-11 09:04 | MHC.AMNUTRGE ---
Intake VS Expanded 04/11/23 13:20 Height 5 ft Weight 152 lb BMI 29.7 Intake Visit Reasons: (OV) PO LSG 06/21/21 Allergies erythromycin base Allergy (Severe, Verified 02/15/23 10:00) Hives, rash Penicillins Allergy (Severe, Verified 02/15/23 10:00) Hives, rash Sulfa (Sulfonamide Antibiotics) Allergy (Severe, Verified 02/15/23 10:00) Hives, rash HPI Nutrition Presentation Details LSG with Dr. Soto 06/21/21 Preop weight (06/05) 198# 4 wks post op 172# weight at 4 MO 137# weight at 6MO PO 126-129# weight in July weight 145 Weigth today 152# Pts goal 125# Reason for consult elevated BMI Diet Assmnt Details Currently having 2 shakes,a bar and a meal most days. Is reall yhappy wiht that . previously tried to add in more food but pt prefers to use more shakes/bars Taking Unjury, tolerating OK Hydration: 40 oz Exercise: 3 days per week running 6 miles 30-45 minutes strength training plus 30 minutes cardio . I feel like it is not a real work out unless I do cardio . has been doing about 3 days resistance training Constipation: 2 fiber choice , Mag calm gummies and does help. Alos added in colon broom which is psyllium husk as main ingredient. Recommended probiotic trial Diagnosis Nutrition problem #1 overweight/obesity As related to (etiology) #1 excess energy intake and physical inactivity As evidenced by (sign/symptom) #1 high BMI (resolved ) Monitoring/Goals Nutrition problem monitoring total energy intake, level of knowledge/skill, total CHO intake and weight Outcome progress progressing Learning/Education Readiness to learn excellent Stages of change action Educational materials provided Yes (fueling for athletes ) Most Recent Diabetes Results: Cholesterol 173 mg/dL (<200) 02/07/23 HDL Cholesterol 63 mg/dL (>40) 02/07/23 Triglycerides 65 mg/dL (<150) 02/07/23 Creatinine 0.82 mg/dL (0.5-1.4) 02/07/23 Blood Urea Nitrogen 21 mg/dL (9-16) H 02/07/23 Sodium 140 mmol/L (135-145) 02/07/23 Potassium 4.3 mmol/L (3.3-5.1) 02/07/23 Chloride 107 mmol/L (96-108) 02/07/23 Carbon Dioxide 27 mmol/L (22-29) 02/07/23 Calcium 9.5 mg/dL (8.4-10.2) 02/07/23 [facility] Medical History (Updated 02/15/23 @ 10:05 by SALMA Sinclair) Liver fibrosis GERD (gastroesophageal reflux disease) BMI 38.0-38.9,adult BMI 39.0-39.9,adult Obesity Dysthymic disorder Vitamin B12 deficiency Vitamin D deficiency Surgical History (Updated 02/15/23 @ 10:01 by Lilia Lawton CMA) S/P laparoscopic sleeve gastrectomy Hx of section Hx of appendectomy Family History Mother Hypertension Father Cancer of pancreas Hypertension Sister No problems noted. Sister No problems noted. Son No problems noted. Daughter No problems noted. Social History (Updated 02/15/23 @ 10:01 by Lilia Lawton CMA) Household Members: Family Housing: House Are you a primary career and transition teacher to a significant other at home: Yes (children ages 11 + 15, will have help after surgery) Do you presently have visiting nurse or other home services: No Alcohol intake: current Alcohol intake frequency: holidays/special occasions only Patient Tobacco Use Status: Former Tobacco user Quit Date: 2017 Tobacco use type: Cigarette service: No Current occupational status: employed Assessment & Plan Assessment & Plan (1) S/P laparoscopic sleeve gastrectomy: Code(s): Z98.84 - Bariatric surgery status Plan see below Patient Instructions: Worked on reframing thoughts around exercise . will continue high protein diet , encouraged to include carbs to help appropriately fuel. continue vitamins. Nutrition f.u 06/19 9am OV Coding Level of Care Code Nutr Indiv Subseq (33219) Diagnoses S/P laparoscopic sleeve gastrectomy Z98.84 Time Spent (min) 30
[2023-04-11 13:20] VITALS: BMI 29.7
== END 2023-04-11 09:44 | disposition home or self-care (01) ==
PROVIDERS: PCP Nurse Practitioner Family; Visit Provider Dietitian, Registered
DX: Z98.84 Bariatric surgery status (principal)

== ENCOUNTER → 2023-04-11 09:03 | Outpatient (BNVA) | payer OTHER, SELFPAY | PROVIDERS: PCP Nurse Practitioner Family; Visit Provider Dietitian, Registered | DX: E66.9 Obesity, unspecified (principal); Z98.84 Bariatric surgery status; Z68.29 Body mass index [BMI] 29.0-29.9, adult | CPT/HCPCS: 97803 ==

== ENCOUNTER 2023-07-05 07:44 | Outpatient (REF) | payer OTHER, SELFPAY ==
[2023-07-05 07:57] LABS: MANUAL DIFF FLAG NO
[2023-07-05 08:24] LABS: Eosinophils Absolute Auto 0.2 X10*3/uL (0.0-0.4); Eosinophils Percent Auto 4.1 % (0-4); Hematocrit 40.9 % (37.0-47.0); Hemoglobin 14.1 g/dl (12.0-16.0); Imm Gran Abs Auto 0.01 X10*3/uL (0.00-0.03); Imm Gran Pct Auto 0.2 % (0.0-0.4); Lymphocytes Absolute Auto 1.1 X10*3/uL (1.2-4.9); Lymphocytes Percent Auto 26.1 % (20-40); Mean Corpuscular HGB Conc 34.5 g/dl (31.0-35.0); Monocytes Absolute Auto 0.3 X10*3/uL (0.1-1.2); Monocytes Percent Auto 7.9 % (2-11); Neutrophils Absolute Auto 2.5 x10*3/uL (2.0-8.3); Neutrophils Percent Auto 60.7 % (45-73); Platelet Count 196 X10*3/uL (160-400); White Blood Count 4.2 X10*3/uL (4.8-10.8)
[2023-07-05 08:29] LABS: Estimated Average Glucose 94 mg/dL; Hemoglobin A1c % 4.9 % (<6.0)
[2023-07-05 08:53] LABS: Alanine Aminotransferase 22 U/L (0-31); Albumin Level 4.1 g/dL (3.5-5.0); Alkaline Phosphatase 34 U/L (39-117); Anion Gap 11 (12-20); Aspartate Amino Transferase 19 U/L (5-31); Bilirubin Total 0.6 mg/dL (0.0-1.0); Blood Urea Nitrogen 26 mg/dL (9-16); C Reactive Protein < 0.10 mg/dL (< or = 0.50); Calcium 9.7 mg/dL (8.4-10.2); Carbon Dioxide 28 mmol/L (22-29); Chloride 107 mmol/L (96-108); Cholesterol 187 mg/dL (<200); Estimated Glomerular Filt Rate > 60; Glucose Random 91 mg/dL (60-115); HDL Cholesterol 69 mg/dL (>40); Iron 105 mcg/dL (30-160); LDL Cholesterol Calculated 108 mg/dL (<100); Percent Iron Saturation 43 % (15-50); Potassium 4.2 mmol/L (3.3-5.1); Sodium 142 mmol/L (135-145); Total Iron Binding Capacity 243 mcg/dL (228-428); Total Protein 6.8 g/dL (6.5-8.0); Triglycerides 51 mg/dL (<150); Unsaturated Iron Binding 138 ug/dL
[2023-07-05 09:10] LABS: Ferritin 240 ng/mL (10-250); Insulin 4 uU/mL (2-29); TSH reflex Free T4 0.74 uIU/mL (0.32-4.0); Vitamin D 25-OH Total 55.7 ng/mL (>30)
[2023-07-05 09:16] LABS: Folate 12.9 ng/mL (> or = 4.0); Vitamin B12 1500 pg/mL (200-900)
[2023-07-09 16:03] LABS: Vitamin B1 16 nmol/L (8-30)
[2023-07-09 16:14] LABS: Zinc 83 mcg/dL (60-130)
[2023-07-10 13:14] LABS: Vitamin A 55 mcg/dL (38-98)
== END 2023-07-05 07:45 | disposition home or self-care (01) ==
LOC: HO.LAB 07:44
PROVIDERS: Visit Provider Physician Assistant Surgical
DX: Z98.84 Bariatric surgery status (principal)
CPT/HCPCS: 36415; 80053; 80061; 82306; 82607; 82728; 82746; 83036; 83525; 83540; 84425; 84443; 84590; 84630; 85025; 86140

== ENCOUNTER 2023-07-11 13:13 | Outpatient (AMB) | payer OTHER, SELFPAY ==
--- NOTE | 2023-07-11 13:03 | MHC.OFFVISWM ---
VS Expanded 07/11/23 13:05 Height 5 ft 1 in Weight 150 lb BMI 28.3 Intake Visit Reasons: TV PO LSG 06/21/21 Allergies erythromycin base Allergy (Severe, Verified 02/15/23 10:00) Hives, rash Penicillins Allergy (Severe, Verified 02/15/23 10:00) Hives, rash Sulfa (Sulfonamide Antibiotics) Allergy (Severe, Verified 02/15/23 10:00) Hives, rash Medication List - Last Reconciled 07/11/23 by SALMA Sinclair clotrimazole 1% 1 appl topical BID HPI Comments Details: This?is a?47?yo female who is s/p LSG 06/21/2021. Presents for 2 year post op visit. Weight at last visit on 04/11/2023 was 152 pounds with a BMI of 29.7, weight today is 150 pounds, representing a 2 pound weight loss with a BMI today of 29.3.? No complaints of nausea, emesis, abdominal pain or reflux. In the middle of a home renovation, struggling with consistency. Present meal plan includes: 2 shakes, a bar and a meal most days Taking Fusion, tolerating Hydration: 40 oz Exercise: 3 days per week running 30-45 minutes strength training GERD: never SHEILA:? never DM:? never HTN:? never Hyperlipidemia:?never Post op complications:? never PFSH Medical History (Updated 02/15/23 @ 10:05 by SALMA Sinclair) Liver fibrosis GERD (gastroesophageal reflux disease) BMI 38.0-38.9,adult BMI 39.0-39.9,adult Obesity Dysthymic disorder Vitamin B12 deficiency Vitamin D deficiency Surgical History (Updated 02/15/23 @ 10:01 by Lilia Lawton CMA) S/P laparoscopic sleeve gastrectomy Hx of section Hx of appendectomy Family History Mother Hypertension Father Cancer of pancreas Hypertension Sister No problems noted. Sister No problems noted. Son No problems noted. Daughter No problems noted. Social History (Updated 02/15/23 @ 10:01 by Lilia Lawton CMA) Household Members: Family Housing: House Are you a primary ocular care technician to a significant other at home: Yes (children ages 11 + 15, will have help after surgery) Do you presently have visiting nurse or other home services: No Alcohol intake: current Alcohol intake frequency: holidays/special occasions only Patient Tobacco Use Status: Former Tobacco user Quit Date: 2017 Tobacco use type: Cigarette service: No Current occupational status: employed Telehealth Telehealth Telehealth Platform: Telephone Location of provider rendering services: other Location of patient: address on file Patient Identification confirmed using: Name, : Yes Telehealth method: voice only Patient verbally consented to treatment: Yes Patient verbally consented to billing insurance company: Yes Patient informed of any privacy concerns related to visit: Yes Minutes spent on Phone/Video with Pt.: 15 Assessment & Plan Assessment & Plan (1) S/P laparoscopic sleeve gastrectomy: Code(s): Z98.84 - Bariatric surgery status Category: Surgical (2) Overweight: Code(s): E66.3 - Overweight Category: Medical Plan Pt will continue same meal plan, knows she needs to be more consistent to see more progress. Short term weight loss goal 145lbs. Labs reviewed, no changes to vitamin regimen made. RTC 3-6 months, texted pt my contact info and encouraged her to reach out with any questions between appts. Patient is overweight and is not considered stable at this time. I spent a total of 30 minutes reviewing/updating records, examining the patient and counseling the patient on weight management as detailed above.
[2023-07-11 13:05] VITALS: BMI 28.3
== END 2023-07-11 13:26 | disposition home or self-care (01) ==
LOC: HO.HBS 13:13
PROVIDERS: PCP Nurse Practitioner Family; Visit Provider Physician Assistant Surgical
DX: E66.3 Overweight (principal); Z68.28 Body mass index [BMI] 28.0-28.9, adult; Z90.3 Acquired absence of stomach [part of]; Z98.84 Bariatric surgery status
CPT/HCPCS: 99214

== ENCOUNTER → 2023-07-11 13:13 | Outpatient (BNVA) | payer OTHER, SELFPAY | PROVIDERS: PCP Nurse Practitioner Family; Visit Provider Physician Assistant Surgical ==

== ENCOUNTER 2023-12-17 09:21 | Outpatient (AMB) | payer OTHER, SELFPAY ==
--- NOTE | 2023-12-17 09:28 | A.OFFVIS_ITS ---
VS Expanded 12/17/23 09:38 BP 113/62 Blood Pressure Location Rt brachial Blood Pressure Position Sitting Pulse 95 Pulse Source Pulse Oximeter Temp 97.4 F Temperature Source Temporal Artery Scan Pulse Oximetry 100 Oxygen Delivery Method Room Air Height 5 ft Weight 149 lb 6.4 oz BMI 29.2 Body Fat % 31.2 Body Fat Mass 46.6 Fat Free Mass 102.8 Visceral Fat Rating 6.0 Body Water % 49.0 Body Water Mass 73.4 Muscle Mass/Score 97.4 Basal Metabolic Rate/Score 1,388 Intake Visit Reasons: PO LSG 06/21/21 Allergies erythromycin base Allergy (Severe, Verified 12/17/23 09:32) Hives, rash Penicillins Allergy (Severe, Verified 12/17/23 09:32) Hives, rash Sulfa (Sulfonamide Antibiotics) Allergy (Severe, Verified 12/17/23 09:32) Hives, rash Medication List - Last Reconciled 12/17/23 by SALMA Sinclair clotrimazole 1% 1 appl topical BID HPI Comments Details: This?is a?[]?yo [] who is s/p LSG with[out] hiatal hernia repair on?06/21/2021. Presents for 2.5 year post op visit. Weight stable since last OV. No complaints of nausea, emesis, abdominal pain or reflux, or constipation. Home renovation is almost done (almost whole first floor). Had a free for all summer and reports she had gained almost 10lbs. Restarted on Oct 27. Present meal plan includes: 2 shakes, a bar and a meal most days Taking alysha MVI, tolerating Hydration: 40 oz Exercise: 3 days per week running 30-45 minutes strength training Pt continues to have problems with excess skin of abdomen. Very uncomfortable during exercise, experiences friction. Moisture collects in skin fold and sometimes causes redness for which she has now tried the clotrimazole ointment but this has not completely resolved the problem. Has to shower immediately after a workout to keep area clean and help prevent rashes from forming. Has to wear compressive pants to hold skin in place especially during exercise as skin moves around a lot. [facility] Medical History (Updated 02/15/23 @ 10:05 by SALMA Sinclair) Liver fibrosis GERD (gastroesophageal reflux disease) BMI 38.0-38.9,adult BMI 39.0-39.9,adult Obesity Dysthymic disorder Vitamin B12 deficiency Vitamin D deficiency Surgical History S/P laparoscopic sleeve gastrectomy Hx of section Hx of appendectomy Family History Mother Hypertension Father Cancer of pancreas Hypertension Sister No problems noted. Sister No problems noted. Son No problems noted. Daughter No problems noted. Social History Household Members: Family Housing: House Are you a primary attending ambulatory care to a significant other at home: Yes (children ages 11 + 15, will have help after surgery) Do you presently have visiting nurse or other home services: No Alcohol intake: current Alcohol intake frequency: holidays/special occasions only Patient Tobacco Use Status: Former Tobacco user Tobacco use type: Cigarette service: No Current occupational status: employed Physical Exam Vital Signs: Last Vital Signs Temp 97.4 F 12/17/23 09:38 Pulse 95 12/17/23 09:38 BP 113/62 12/17/23 09:38 Pulse Ox 100 12/17/23 09:38 Oxygen Delivery Method Room Air 12/17/23 09:38 BMI result Body Mass Index 29.2 Assessment & Plan Assessment & Plan (1) S/P laparoscopic sleeve gastrectomy: Code(s): Z98.84 - Bariatric surgery status Category: Medical (2) Overweight: Code(s): E66.3 - Overweight Category: Medical (3) Excess skin: Code(s): L98.7 - Excessive and redundant skin and subcutaneous tissue Category: Medical Plan Pt is back on track after weight gain, doing well with current meal plan/exercise regimen. Interested in pursuing skin removal surgery closer to home, considering options, will call office with name of MD when she decides. Continue MVI, will repeat labs at annual visit. RTC 6 months. I spent a total of 30 minutes reviewing/updating records, examining the patient and counseling the patient on weight management as detailed above.
[2023-12-17 09:38] VITALS: BP 113/62; PULSE 95; TEMP 36.3; O2SAT 100; BMI 29.2
== END 2023-12-17 10:02 | disposition home or self-care (01) ==
PROVIDERS: PCP Nurse Practitioner Family; Visit Provider Physician Assistant Surgical
DX: E66.3 Overweight (principal); Z98.84 Bariatric surgery status; L98.7 Excessive and redundant skin and subcutaneous tissue
CPT/HCPCS: 99214; G2211

== ENCOUNTER → 2023-12-17 09:21 | Outpatient (BNVA) | payer OTHER, SELFPAY | PROVIDERS: PCP Nurse Practitioner Family; Visit Provider Physician Assistant Surgical | DX: E66.3 Overweight (principal); L98.7 Excessive and redundant skin and subcutaneous tissue; Z98.84 Bariatric surgery status; Z68.39 Body mass index [BMI] 39.0-39.9, adult | CPT/HCPCS: 99212 ==

== ENCOUNTER 2024-06-17 09:24 | Outpatient (AMB) | payer OTHER, SELFPAY ==
--- NOTE | 2024-06-17 09:27 | MHC.OFFVISWM ---
VS Expanded 06/17/24 09:32 BP 111/59 L Blood Pressure Location Rt brachial Blood Pressure Position Sitting Pulse 88 Pulse Source Pulse Oximeter Temp 97.3 F Temperature Source Temporal Artery Scan Pulse Oximetry 100 Oxygen Delivery Method Room Air Height 5 ft Weight 138 lb BMI 26.9 Body Fat % 26.4 Body Fat Mass 36.4 Fat Free Mass 101.4 Visceral Fat Rating 5.0 Body Water % 52.3 Body Water Mass 72.0 Muscle Mass/Score 96.4 Basal Metabolic Rate/Score 1,355 Intake Visit Reasons: (OV) PO LSG 06/21/21 Allergies erythromycin base Allergy (Severe, Verified 06/17/24 09:33) Hives, rash Penicillins Allergy (Severe, Verified 06/17/24 09:33) Hives, rash Sulfa (Sulfonamide Antibiotics) Allergy (Severe, Verified 06/17/24 09:33) Hives, rash Medication List - Last Reconciled 06/17/24 by SALMA Sinclair clotrimazole 1% 1 appl topical BID HPI Comments Details: This?is a?48?yo female who is s/p LSG 06/21/2021. Presents for 3yr post op visit. Weight loss of 11.4lbs since last OV 6mo ago.? No complaints of nausea, emesis, abdominal pain or reflux, or constipation. Present meal plan includes: 2 shakes, a bar and a meal most days Taking Fusion alysha MVI, tolerating Hydration: 40 oz Exercise: 3 days per week running 30-45 minutes strength training Pt has seen Dr. Ortiz and planning to have skin removal and breast augmentation, next June 2025. Have you been diagnosed with reflux (GERD)? no Score 0-5: 0=no symptoms, 1=noticeable but not bothersome (slight or occasional), 2=noticeable, bothersome but not daily, 3=bothersome and daily, 4=affects daily activities, 5=incapacitating, unable to do daily activities How bad is the heartburn: 0 Heartburn when lying down: 0 Heartburn when standing up: 0 Heartburn after meals: 0 Does heartburn change your diet: 0 Does heartburn wake you up from sleep: 0 Do you have difficulty swallowin Do you have pain with swallowin If you take medication for reflux, does this affect your daily life: 0 Total score: 0 PFSH Medical History (Updated 02/15/23 @ 10:05 by SALMA Sinclair) Liver fibrosis GERD (gastroesophageal reflux disease) BMI 38.0-38.9,adult BMI 39.0-39.9,adult Obesity Dysthymic disorder Vitamin B12 deficiency Vitamin D deficiency Surgical History S/P laparoscopic sleeve gastrectomy Hx of section Hx of appendectomy Family History Mother Hypertension Father Cancer of pancreas Hypertension Sister No problems noted. Sister No problems noted. Son No problems noted. Daughter No problems noted. Social History Household Members: Family Housing: House Are you a primary transitions rn care coordinator to a significant other at home: Yes (children ages 11 + 15, will have help after surgery) Do you presently have visiting nurse or other home services: No Alcohol intake: current Alcohol intake frequency: holidays/special occasions only Patient Tobacco Use Status: Former Tobacco user Tobacco use type: Cigarette service: No Current occupational status: employed Physical Exam Vital Signs: Last Vital Signs Temp 97.3 F 06/17/24 09:32 Pulse 88 06/17/24 09:32 BP 111/59 L 06/17/24 09:32 Pulse Ox 100 06/17/24 09:32 Oxygen Delivery Method Room Air 06/17/24 09:32 BMI result Body Mass Index 26.9 Assessment & Plan Assessment & Plan (1) S/P laparoscopic sleeve gastrectomy: Code(s): Z98.84 - Bariatric surgery status Category: Surgical (2) Overweight: Code(s): E66.3 - Overweight Category: Medical (3) Excess skin: Code(s): L98.7 - Excessive and redundant skin and subcutaneous tissue Category: Medical Plan Pt doing very well 3 years after LSG. Healthy body fat %, high muscle mass, low visceral fat. Has a consistent meal plan, exercise regimen. Will order annual labs. Pt ok with following up in 1 year but will call office if she would like to be seen sooner. Orders: Orders Complete Blood Count Auto Diff Today Z98.84 - Bariatric surgery status Zinc Today Z98.84 - Bariatric surgery status C Reactive Protein Today Z98.84 - Bariatric surgery status Vitamin B1 Today Z98.84 - Bariatric surgery status TSH reflex Free T4 Today Z98.84 - Bariatric surgery status Ferritin Today Z98.84 - Bariatric surgery status Insulin Today Z98.84 - Bariatric surgery status Hemoglobin A1c Today Z98.84 - Bariatric surgery status Lipid Panel Today Z98.84 - Bariatric surgery status IRON PROFILE Today Z98.84 - Bariatric surgery status Comprehensive Met. Panel Today Z98.84 - Bariatric surgery status Vitamin B12 and Folate Today Z98.84 - Bariatric surgery status Vitamin A Today Z98.84 - Bariatric surgery status Vitamin D 25-OH Total Today Z98.84 - Bariatric surgery status
[2024-06-17 09:32] VITALS: BP 111/59; PULSE 88; TEMP 36.3; O2SAT 100; BMI 26.9
== END 2024-06-17 10:04 | disposition home or self-care (01) ==
LOC: HO.HBS 09:24
PROVIDERS: Visit Provider Physician Assistant Surgical
DX: E66.3 Overweight (principal); Z68.26 Body mass index [BMI] 26.0-26.9, adult; L98.7 Excessive and redundant skin and subcutaneous tissue; Z98.84 Bariatric surgery status
CPT/HCPCS: 99214; G2211

== ENCOUNTER → 2024-06-17 09:24 | Outpatient (BNVA) | payer OTHER, SELFPAY | PROVIDERS: Visit Provider Physician Assistant Surgical | DX: E66.3 Overweight (principal); L98.7 Excessive and redundant skin and subcutaneous tissue; Z98.84 Bariatric surgery status; Z68.26 Body mass index [BMI] 26.0-26.9, adult | CPT/HCPCS: 99212 ==

== ENCOUNTER 2024-06-27 07:02 | Outpatient (REF) | payer OTHER, SELFPAY ==
[2024-06-27 07:18] LABS: MANUAL DIFF FLAG NO
[2024-06-27 07:55] LABS: Eosinophils Absolute Auto 0.1 X10*3/uL (0.0-0.4); Eosinophils Percent Auto 2.5 % (0-4); Hematocrit 38.7 % (37.0-47.0); Hemoglobin 12.9 g/dl (12.0-16.0); Imm Gran Abs Auto 0.01 X10*3/uL (0.00-0.03); Imm Gran Pct Auto 0.3 % (0.0-0.4); Lymphocytes Absolute Auto 1.1 X10*3/uL (1.2-4.9); Lymphocytes Percent Auto 28.1 % (20-40); Mean Corpuscular HGB Conc 33.3 g/dl (31.0-35.0); Monocytes Absolute Auto 0.3 X10*3/uL (0.1-1.2); Monocytes Percent Auto 8.1 % (2-11); Neutrophils Absolute Auto 2.4 x10*3/uL (2.0-8.3); Platelet Count 196 X10*3/uL (160-400); Red Blood Count 4.16 X10*6/uL (4.20-5.50); Red Cell Distribution Width 12.3 % (11.0-16.0)
[2024-06-27 08:08] LABS: Estimated Average Glucose 88 mg/dL; Hemoglobin A1C 95.1083 umol/L; Hemoglobin A1c % 4.7 % (<6.0); Total Hemoglobin (HGBA1C) 3472.0106 umol/L
[2024-06-27 08:35] LABS: Alanine Aminotransferase 26 U/L (0-31); Albumin Level 4.2 g/dL (3.5-5.0); Alkaline Phosphatase 34 U/L (39-117); Anion Gap 11 (12-20); Aspartate Amino Transferase 22 U/L (5-31); Bilirubin Total 0.7 mg/dL (0.0-1.0); Blood Urea Nitrogen 20 mg/dL (9-16); C Reactive Protein < 0.10 mg/dL (< or = 0.50); Calcium 9.6 mg/dL (8.4-10.2); Carbon Dioxide 29 mmol/L (22-29); Chloride 107 mmol/L (96-108); Cholesterol 177 mg/dL (<200); Estimated Glomerular Filt Rate > 60; Glucose Random 81 mg/dL (60-115); HDL Cholesterol 80 mg/dL (>40); Iron 133 mcg/dL (30-160); LDL Cholesterol Calculated 86 mg/dL (<100); Percent Iron Saturation 57 % (15-50); Potassium 4.5 mmol/L (3.3-5.1); Sodium 142 mmol/L (135-145); Total Iron Binding Capacity 234 mcg/dL (228-428); Total Protein 6.7 g/dL (6.5-8.0); Triglycerides 58 mg/dL (<150); Unsaturated Iron Binding 101 ug/dL
[2024-06-27 09:00] LABS: Ferritin 157 ng/mL (10-250); Insulin 7 uU/mL (2-29); TSH reflex Free T4 1.19 uIU/mL (0.32-4.0); Vitamin D 25-OH Total 60.6 ng/mL (>30)
[2024-06-27 09:01] LABS: Folate 14.4 ng/mL (> or = 4.0); Vitamin B12 1037 pg/mL (200-900)
[2024-06-30 21:44] LABS: Zinc 75 mcg/dL (60-130)
[2024-07-02 16:09] LABS: Vitamin A 70 mcg/dL (38-98)
[2024-07-03 17:29] LABS: Vitamin B1 27 nmol/L (8-30)
== END 2024-06-27 07:03 | disposition home or self-care (01) ==
LOC: HO.LAB 07:02
PROVIDERS: PCP Registered Nurse; Visit Provider Physician Assistant Surgical
DX: Z98.84 Bariatric surgery status (principal)
CPT/HCPCS: 36415; 80053; 80061; 82306; 82607; 82728; 82746; 83036; 83525; 83540; 84425; 84443; 84590; 84630; 85025; 86140